=== PATIENT | male | born 1935 | race Caucasian/White ===

== ENCOUNTER 2016-09-27 12:41 | Observation (INO) | payer MEDICARE, OTHER ==
[~2016-09-27] VITALS: Ht 182.9 cm; Wt 91.3 kg
--- NOTE | ~2016-09-27 | ER ---
PATIENT'S NAME: RADHA COPELAND [facility] AGE: 81 Y [address] ROOM: [place] [address] [place]: [facility] [place] [facility] [place] ADMIT DATE: 09/27/2016 ER/Outpatient Report DISCHARGE DATE: FAMILY PHYSICIAN: Bakari Cardenas MD ATTENDING PHYSICIAN: Bakari Cardenas CHIEF COMPLAINT: Unresponsive, asymmetric. HISTORY OF PRESENT ILLNESS: The patient arrives by ambulance. Based on their report, the patient was not moving his left side and decreased moving on the right side. For that reason, he was called as a stroke alert prior to arrival. The patient is unable to provide further history, all history per EMS and family. The patient is emotional, intermittently crying, but nonverbal for the EMS crew. He does not follow commands in any extremities, but appears to move his right more than his left. The patient was seen by Dr. Cardenas earlier today in the clinic and given "a shot" for the infection in his legs, and he has underlying dementia. PAST MEDICAL HISTORY: Documented on the record and have been reviewed by me. SOCIAL HISTORY: Documented on the record and have been reviewed by me. MEDICATIONS: Documented on the record and have been reviewed by me. ALLERGIES: DOCUMENTED ON THE RECORD AND HAVE BEEN REVIEWED BY ME. REVIEW OF SYSTEMS: Could not be performed as the patient was nonverbal. PHYSICAL EXAMINATION: VITAL SIGNS: Blood pressure is 142/67, pulse is 74, respiratory rate is 16, temperature 98.9, and SpO2 is 93% on room air. Pain does not appear to be present. GENERAL: Age-appropriate male, no obvious pain or distress, lying on the exam table. NEURO: On exam, the patient has symmetric extraocular movements. He opens and closes eyes to command. He does not open his mouth or stick his tongue out to command. There is no motor tone in the upper extremities with request for pronator drift. He does not follow commands in either extremity for travel consultant, thumbs up or other motions. He will not move his legs. He will open and PATIENT'S NAME: RADHA COPELAND [facility] AGE: 81 Y [address] ROOM: [address] [address] LOCATION: [facility] [place] [place] ADMIT DATE: 09/27/2016 ER/Outpatient Report DISCHARGE DATE: FAMILY PHYSICIAN: Bakari Cardeans MD ATTENDING PHYSICIAN: Bakari Cardenas close his eyes to command. No clear asymmetric deficit at this time. The patient is nonverbal, I cannot assess his speech. HEENT: Normocephalic, atraumatic. Eyes are PERRL. Oropharynx is clear. NECK: Supple. Trachea is midline. CHEST: Heart has regular rate and rhythm with no murmurs. Lungs are clear to auscultation bilaterally with no rhonchi, wheezes, or rales. ABDOMEN: Soft, nontender, nondistended. No rebound or guarding. BACK: Normal to inspection and palpation. EXTREMITIES: Warm. There appears to be cellulitis versus heart failure versus DVT of the bilateral lower extremities, left greater than right. [place] edema on the left to the mid thigh, to the distal thigh on the right. SKIN: Otherwise, warm, dry, and intact grossly. LABORATORY DATA AND X-RAYS: DVT ultrasound, result is pending. Procalcitonin is below threshold. D-dimer is 2.49. Troponin I is below threshold. CRP is 1.95. ProBNP 6696. WBC is 8.3, hemoglobin 11.2, platelets of 271. INR is 1.0. Sodium is 141, potassium 4.0, chloride is 107, CO2 is 27, BUN is 31, creatinine 1.3, GFR 53, albumin and phosphorus 3.1 and 2.7 respectively. Lactate is 1.3. EKG reveals what appears to be AFib on the monitor, rate controlled approximately 65 beats per minute with likely prior infarct. No evidence of active ischemia at this time. Head CT, unremarkable; chest x-ray, unremarkable per my read. IMPRESSION: 1. Unresponsive episode with stroke-like symptoms initially. 2. Heart failure. 3. Dementia. EMERGENCY DEPARTMENT COURSE: The patient was seen and evaluated as above. His daughter arrived from [place]. He became verbal at that time, but did not improve significantly. She provides collateral history that he has been having some significant problems with dealing with grief since his fell ill about a month ago with heart failure. He intermittently will go catatonic, but usually responds shortly after just a minute or two. The daughter had not seen him like this before. He still was not following commands on my re-evaluation, but was talking spontaneously, interacting with the daughter. He does have heart failure based on labs and physical exam. The daughter expresses that he would be a DNR if his heart were to stop and they would not want any "extreme" measures to save his life. Based on my presentation, the lack of asymmetry and improving neuro status, though slowly, I think this is likely not a stroke. The patient was seen by PATIENT'S NAME: RADHA COPELAND [facility] AGE: 81 Y [address] ROOM: [place] [address] LOCATION: [facility] [place] ADMIT DATE: 09/27/2016 ER/Outpatient Report DISCHARGE DATE: FAMILY PHYSICIAN: Bakari Cardenas MD ATTENDING PHYSICIAN: Bakari Cardenas Dr.. We will bring him into the hospital under the care of Dr. Cardenas for further evaluation and treatment of this episode. All questions were answered, and the patient was admitted without further difficulty. MD LIZBETH KENNEDY/modl /[id number] d: 09/28/16921 t: 10/01/16 2213, OUTPATIENT REPORT
--- NOTE | ~2016-09-27 | DS ---
PATIENT'S NAME: RADHA COPELAND [facility] AGE: 81 Y [address] ROOM: [address] [place] [place], [place] [address] LOCATION: [facility] [place] ADMIT DATE: 09/27/2016 Discharge Summary DISCHARGE DATE: 10/05/2016 FAMILY PHYSICIAN: Bakari Cardenas MD ATTENDING PHYSICIAN: Bakari Cardenas FINAL DIAGNOSES: 1. Catatonic state, etiology undetermined. 2. Acute cellulitis of bilateral lower extremities. 3. Depression, acute, probably causing number 1? 4. Dementia, Alzheimer's. 5. Chronic obstructive pulmonary disease. 6. Combined-type congestive heart failure. 7. Benign prostatic hypertrophy. 8. Chronic gastroesophageal reflux disease. 9. Asthma, [id number]. 10. Hyperlipidemia. 11. Chronic low back pain secondary to lumbar spinal stenosis and compression fractures, old. HOSPITAL COURSE: This is an elderly 81-year-old male with known dementia, who was seen in my office just prior to admission with his son Harlan. He presented there because he was noted to have red legs. In my office, he had a significant area of erythema in both legs from the knees to the ankle consistent with cellulitis. He was given a shot of Rocephin, and started on oral antibiotics, only to have his son call me when he got back with his Dad father's living circumstances, and his Dad became nonverbal. The patient ended up being brought to the Emergency Room, and he was found there to be in a catatonic state. Vital signs were stable. So, he was admitted to the hospital. Please see history and physical. Please see the ER notes and labs and x-rays, etc. The patient was placed on IV antibiotics, Rocephin, and his cellulitis resolved during hospitalization. After about 36 hours, he decided to perk up and talk to his family. I did start him on Remeron here in the hospital. His other medications were continued, and it is fairly obvious to the physician and family that he cannot return to Assisted Living circumstance but really needs to be in a Residential Facility. So, care Management was consulted, and that has been arranged. In fact, he is being dismissed today on 10/05/2016 to a alf here in [place]. He is dismissed on the med list shown. He was on a diet as tolerated, and activity as tolerated. His mood has PATIENT'S NAME: RADHA COPELAND [facility] AGE: 81 Y [address] ROOM: [address] [address] LOC[place]: [facility] [place] ADMIT DATE: 09/27/2016 Discharge Summary DISCHARGE DATE: 10/05/2016 FAMILY PHYSICIAN: Bakari Cardenas MD ATTENDING PHYSICIAN: Bakari Cardenas improved. His cellulitis has resolved. He will see me in the office in two weeks. MD ROSS MANZANO/yolanda /[id number] d: 10/05/168 t: 10/20/16 1030, DISCHARGE SUMMARY
--- NOTE | ~2016-09-27 | ENPV ---
Vascular Lower Extremities DVT Study Procedure Demographics Patient Name RADHA COPELAND Date of Study 09/27/2016 Patient Number [id number] Gender Male Date of 1935 Age 81 Visit Number [id number] Height Accession Number [id number] Weight Room Number BSA BMI Referring Ronald Valerio MD Interpreting Paddy Callaway MD Physician Physician Physician Ordering Physician Rizwan Almeida MD Distribution Operations Manager Art Supervisor Court Yee T, [facility] Conclusions Summary TECHNIQUE: The veins of the lower extremities on the right and the left were evaluated from the groin to the ankle using degroot scale, compression, and augmentation. Venous hemodynamics were evaluated with color flow and spectral Doppler. FINDINGS: The deep veins of the legs bilaterally show normal color flow and compressibility without thrombosis. IMPRESSION: NEGATIVE BILATERAL LOWER EXTREMITY VENOUS DOPPLER. Procedure Type of Study: Veins:Lower Extremities DVT Study, Lower Extremity Right, Venous Duplex Lower Extremity Bilateral. Indications for Study:Swelling. Appropriate Use Criteria:6 Patient Status:STAT. Study Location:ER. Technical Quality:Adequate visualization. - Preliminary reported to:Dr. Astorga at 1335. Velocities are measured in cm/s ; Diameters are measured in cm Right Lower Extremities DVT Study Measurements Right 2D and Doppler Measurements + + + + +------+------+ + !Location !Visualized!Compressibility!Thrombosis!Signal!Reflux!Reflux ! ! ! ! ! ! ! !(sec) ! + + + + +------+------+ + !GSV Thigh !Yes !Yes !None !Phasic! ! ! + + + + +------+------+ + !Common !Yes !Yes !None !Phasic! ! ! !Femoral ! ! ! ! ! ! ! + + + + +------+------+ + !Prox !Yes !Yes !None !Phasic! ! ! !Femoral ! ! ! ! ! ! ! + + + + +------+------+ + !Mid Femoral!Yes !Yes !None !Phasic! ! ! + + + + +------+------+ + !Dist !Yes !Yes !None !Phasic! ! ! !Femoral ! ! ! ! ! ! ! + + + + +------+------+ + !Popliteal !Yes !Yes !None !Phasic! ! ! + + + + +------+------+ + !PTV !Yes !Yes !None !Phasic! ! ! + + + + +------+------+ + !Peroneal !Yes !Yes !None !Phasic! ! ! + + + + +------+------+ + Left Lower Extremities DVT Study Measurements Left 2D and Doppler Measurements + + + + +------+------+ + !Location !Visualized!Compressibility!Thrombosis!Signal!Reflux!Reflux ! ! ! ! ! ! ! !(sec) ! + + + + +------+------+ + !GSV Thigh !Yes !Yes !None !Phasic! ! ! + + + + +------+------+ + !Common !Yes !Yes !None !Phasic! ! ! !Femoral ! ! ! ! ! ! ! + + + + +------+------+ + !Prox !Yes !Yes !None !Phasic! ! ! !Femoral ! ! ! ! ! ! ! + + + + +------+------+ + !Mid Femoral!Yes !Yes !None !Phasic! ! ! + + + + +------+------+ + !Dist !Yes !Yes !None !Phasic! ! ! !Femoral ! ! ! ! ! ! ! + + + + +------+------+ + !Popliteal !Yes !Yes !None !Phasic! ! ! + + + + +------+------+ + !PTV !Yes !Yes !None !Phasic! ! ! + + + + +------+------+ + !Peroneal !Yes !Yes !None !Phasic! ! ! + + + + +------+------+ + Signature dtt: Bill Thomason: 09/27/16 1310 Physician Self Edit
--- NOTE | ~2016-09-27 | HP ---
PATIENT'S NAME: RADHA COPELAND [facility] AGE: 81 Y [address] ROOM: [address] [address] LOCATION: [facility] [place] ADMIT DATE: 09/27/2016 History & Physical DISCHARGE DATE: FAMILY PHYSICIAN: Bakari Cardenas MD ATTENDING PHYSICIAN: Bakari Cardenas DATE OF SERVICE: CHIEF COMPLAINT: Depression. The patient is an elderly white male whom frankly I just saw in the office prior to coming from the emergency room, who presented with his son, Jayden Copeland. At that time, he had been [facility]. They noted his legs were red, swollen, and in my office, the patient had bilateral lower leg cellulitis and was given 1 g Rocephin and sent out the door. At that time, I did review his medicines, there have been no other changes. He has been depressed in the last month since his . He did not [facility] this time at [facility]. Long story short then, his son noticed when he got back to living circumstance, he became catatonic by his description. So, I told the son, Jayden to bring the patient to the emergency room, where he was appropriately evaluated by Dr. Astorga, the ER physician. Dr. Astorga called me and said he did feel the patient should go back to his current living environment catatonic. So, the patient was taken out of PCU and will treat him with IV antibiotic, Rocephin and add his Remeron as an antidepressant which I planned on doing. MD ROSS MANZANO/modl /[id number] D: 328 T: 744 HISTORY & PHYSICAL
--- NOTE | ~2016-09-27 | HP ---
PATIENT'S NAME: RADHA COPELAND [facility] AGE: 81 Y [address] ROOM: [place] [address] LOCATION: [facility] [place] ADMIT DATE: 09/27/2016 History & Physical DISCHARGE DATE: FAMILY PHYSICIAN: Lucius Cardenas MD ATTENDING PHYSICIAN: Lucius Cardenas DATE OF SERVICE: 10/03/2016 Radha Copeland is seen today. HISTORY OF PRESENT ILLNESS: He has been on the hospital for several days. Basically, we were awaiting for placement. I did talk to the physician review [facility] and frankly I do not find any criteria that he meets necessarily inpatient status. Hospital service delivery consultant physician was informed about that. OBJECTIVE: VITAL SIGNS: Pulse is irregular in 80, O2 sats normal on room air. GENERAL: He is alert. His mood has improved. He is not suicidal. HEENT: Benign. NECK: Unremarkable. LUNGS: Clear anteriorly. Few scattered rhonchi. Clear with cough. HEART: Shows a regular rhythm at 80. ABDOMEN: Benign. EXTREMITIES: Show trace edema. NEUROLOGIC: Grossly intact without lateralizing signs. ASSESSMENT: 1. Severe depression and catatonic state, improved recently, added Remeron. 2. Chronic obstructive pulmonary disease and asthma. Stable. O2 sats normal. 3. Hypertension, essential. 4. Known carotid disease. 5. Combined type congestive heart failure, chronic. 6. Atrial fibrillation. PLAN: Continue to work towards placement. LUCIUS CARDENAS MD PATIENT'S NAME: RADHA COPELAND [facility] AGE: 81 Y [address] ROOM: [place] [id number] LOCATION: [facility] [place] ADMIT DATE: 09/27/2016 History & Physical DISCHARGE DATE: FAMILY PHYSICIAN: Lucius Cardenas MD ATTENDING PHYSICIAN: Lucius Cardenas DIRECTOR OF MARKETING AND PROMOTIONS/modl /[id number] D: 78 HISTORY & PHYSICAL
--- NOTE | ~2016-09-27 | HP ---
PATIENT'S NAME: RADHA COPELAND [facility] AGE: 81 Y [address] ROOM: [place] [address] LOCATION: [facility] [place] ADMIT DATE: 09/27/2016 History & Physical DISCHARGE DATE: FAMILY PHYSICIAN: Bakari Cardenas MD ATTENDING PHYSICIAN: Bakari Cardenas DATE OF SERVICE: CONTINUATION: The patient therefore was admitted to the floor, we will give him IV antibiotics, reassess in the morning. MEDICINES: Reviewed. ALLERGIES: NOTED. SOCIAL HISTORY: Noncontributory. FAMILY HISTORY: As described above. REVIEW OF SYSTEMS: Positive for COPD, diabetes mellitus type 2, dementia, Alzheimer's type, coronary artery disease, and depression. Otherwise, see nurse's database. PHYSICAL EXAMINATION: Elderly male who does not want talk now, although when I came in the room, he said ashley Caceres. HEENT: Shows pupils react to light. Funduscopic exam not done. TMs not visualized. Posterior pharynx is clear. NECK: Unremarkable. I did not listen for a bruit. Thyroid not enlarged. LUNGS: Show decreased breath sounds throughout, but no wheezing. HEART: Shows no murmur, gallop, or rub. Irregular rhythm noted. ABDOMEN: Benign without point tenderness or mass. PELVIC AND RECTAL: Not done. NEUROLOGIC: Shows no focal neurologic deficit from his prior exam. SKIN: Shows fiery red cellulitis in both lower legs from the knee down bilaterally with some open sores that appeared to be ruptured blisters on his left leg, a couple of them 3 cm in size. Nothing to suggest reji MRSA nor does have a history thereof. ASSESSMENT: PATIENT'S NAME: RADHA COPELAND [facility] AGE: 81 Y [address] ROOM: [place] [id number] LOCATION: [facility] [place] ADMIT DATE: 09/27/2016 History & Physical DISCHARGE DATE: FAMILY PHYSICIAN: Bakari Cardenas MD ATTENDING PHYSICIAN: Bakari Cardenas 1. Catatonic behavior and depression. 2. Cellulitis of lower extremity bilateral. 3. Chronic obstructive pulmonary disease. 4. History of atrial fibrillation. 5. Coronary artery disease. 6. Dementia, Alzheimer's type. 7. Elevated BNP consistent with longstanding chronic mixed type congestive heart failure. PLAN: As above. MD ROSS MANZANO/yolanda /[id number] D: [id number] T: [id number] HISTORY & PHYSICAL
[~2016-09-27 12:41] MED LIST changes: -AMITIZA8 MCG PO; -ANUSOL-HC CREAM30 GM R; -CERAVE TOP; -CERAVE453 GM TOP; -CHLORASEPTIC SP1 BOT PO; -DOXYCYCLINE100 MG PO; -DULCOLAX10 MG R; -DURAGESIC 100100 MCG TRANS; -ENDOCET 10-3251 EACH PO; -KEFLEX500 MG PO; -MILK OF MA400 MG/5 M PO; -MUCINEX600 MG PO; -MYCOLOG CREAM 330 GM TOP; -PERCOCET 5-3251 EACH PO; -PERIDEX15 ML PO; -PRAMOSONE TOP; -PRESERVISION A1 EACH PO; -REMERON15 MG PO; -RITALIN 10MG10 MG PO; -SEROQUEL25 MG PO; -THERAGRAN-M1 TAB PO; -TOPROL XL25 MG PO; -ULTRAM50 MG PO; -VITAMIN D-40400 UNIT PO
[2016-09-27 13:08] LABS: BASOPHIL % 0.5 %; EOSINOPHIL # 0.1 K/uL (0.0-0.5); HEMATOCRIT 34.4 % (33.0-50.0); HEMOGLOBIN 11.2 g/dL (11.0-16.0); IMMATURE GRANULOCYTE % 0.2 %; LYMPHOCYTE # 2.2 K/uL (0.8-4.0); LYMPHOCYTE % 26.8 %; MCH 32.7 pg (27.0-34.0); MCHC 32.6 gm/dL (32.0-36.5); MCV 100.6 fl (83.0-98.0); MONOCYTE # 0.7 K/uL (0.0-1.0); MONOCYTE % 8.9 %; MPV 10.1 fl (9.4-12.4); NEUTROPHIL # (ANC) 5.2 K/uL (1.4-9.0); NEUTROPHIL % 62.6 %; NRBC % 0 /100WBC (0-0.00); PLATELET COUNT 271 K/uL (150-450); RBC 3.42 M/uL (3.50-5.50); RDW-CV 14.5 % (11.9-14.6); WBC 8.3 K/uL (4.0-11.0)
[2016-09-27 13:22] LABS: ALBUMIN 3.1 gm/dL (3.5-5.0); CALCIUM 8.4 mg/dL (8.5-10.5); CREATININE 1.3 mg/dL (0.6-1.3); INR - (THERAPEUTIC) 1.08 (0.92-1.07); PHOSPHORUS 2.7 mg/dL (2.5-4.9); PROTIME 11.3 SECONDS (9.8-11.4); PTT 24 SECONDS (25-32)
--- NOTE | 2016-09-27 17:22 | NUR ---
Pt is 81 y/o male admit for heart failure/cellulitis legs for . Pt oriented to person. [place]. Resides at [facility]. Came through ED. Hx renal ca-left nephrectomy,prostate ca,TIA,alzheimers,CABG,colon resection,afib,RI,DVT,COPD,arthritis,diverticulitis,gerd,pneumonia,anxiety, depression. Son states he found pt unresponsive in his bathroom in his wheelchair with the heat turned up to about 86 degrees. He states pt was drooling and couldn't speak very well. PT had been to the doctor this am with his son to have his cellulitis on his legs evaluated and was slightly confused then. He has frequent falls and uses an electric wheelchair to get around. Bilat lower legs reddened.
[2016-09-27] MEDS ORDERED: AMITIZA8 MCG PO (19:31)
[2016-09-27] MEDS ORDERED: CERAVE453 GM TOP (19:34)
[2016-09-27] MEDS ORDERED: VITAMIN D-40400 UNIT PO (19:35)
[2016-09-27] MEDS ORDERED: MILK OF MA400 MG/5 M PO (19:37)
--- NOTE | 2016-09-28 05:27 | NUR ---
Significant Event: PATIENT IS ALERT WHEN SPOKEN TO WILL FOLLOW SIMPLE COMMANDS. AMBULATES WITH GB 2 PERSON ASSIST TO STAND BY BEDSIDE AND USE URINAL. HAS ROCEPHEN Q 12 HRS IV FOR CELLULITIS IN LOWER EXTREMITIES. HAD A STROKE ALERT YESTERDAY AM CT WAS NEGATIVE. CHRONIC AFIB. BEDREST WITH BATHROOM PRIVILAGES. IV R AC SL. VSS ON RA. INCONTENANT URINE X2 THIS SHIFT USED URINAL X2. HX OF SMALL GI BLEED. PLAN TO RETURN TO [facility] THIS AM. Follow up:
--- NOTE | 2016-09-28 10:30 | NUR ---
D: Family brought in patient's bilateral hearing aides, santiago cell plone decorating machine operator
--- NOTE | 2016-09-28 16:16 | NUR ---
Significant Event: Patient sleepy this am. More alert this afternoon. Disoriented to time. Duragesic patch to lt chest. Lower legs edematous, reddened and areas of open blisters. Up in chair with 2 assist. PT and OT consulted. Ate breakfast, refused lunch. Follow up:
--- NOTE | 2016-09-29 05:07 | NUR ---
Significant Event: Pt up in chair beginning of shift. 2 assist back to bed. INcont of urine x 2. No c/o pain. [place]. Bed alarm on for safety with 1 attempt to get out of bed when in need of urinal. PT/OP working with. New IV started to right posterior arm right above AC. Left leg has 2 open blisters and Right has one, no drainage noted this shift. Follow up:
--- NOTE | 2016-09-29 17:45 | NUR ---
Oriented to self. Uses wheelchair in home. Tolerating regular diet well. IV Abx intermittently. Repo frequently. VSS, afebrile, on RA. Denies N/V/D. C/O back discomfort this a.m. from mattress, refused meds for it. Takes pills in applesauce. Looking for placement.
--- NOTE | 2016-09-30 04:59 | NUR ---
Patient alert to self and place. Room air. No IVF. IV to R) upper arm - no blood return. IV antibiotics. 1-2 assist with walker and gaitbelt. Stands up and uses urinal - wears breif for incontinence - none this shift. Bed alarm on. [place]. No c/o pain. Patient cooperative with cares. Left leg has 2 open blisters and right has one. No drainage this shift. WOC consult.
--- NOTE | 2016-09-30 11:37 | NUR ---
RECEIVED CALL FROM PATIENT'S DAUGHTER MYNOR WHO IS ALSO POA( [phone]). SHE FEELS THAT HER DAD NEEDS TO GO TO SNF INSTEAD OF BACK TO [facility]. HER MOM IS AT [facility] AND MYNOR HAS SPOKE TO [facility] BUT THEY DO NOT HAVE ANY MALE BEDS AT THIS TIME. MYNOR WOULD LIKE FOR ME TO CHECK AT [facility]. SHE REPORTS THAT SHE HAS SPOKEN TO SOMEONE THERE ANDTHEY DO HAVE A MALE BE. I ATTEMPTED TO MAKE REFERRAL TO EYAD AT [facility] BUT HAD TO LEAVE A MESSAGE FOR HER TO CALL ME. I SPOKE TO REBECCA EARLY THIS AM AT [facility] AND SHE REPORTS THAT RADHA WILL NEED TO GO TO SNF FOR SHORT STAY. HIS NEEDS EXCEED WHAT THEY CAN PROVIDE.
--- NOTE | 2016-09-30 13:09 | NUR ---
RECEIVED CALL FROM JUAN AT [facility] SHE INFORMS ME THAT THEY WILL NOT BE ABLE TO ACCEPT PATIENT'S THIS WEEK. I SPOKE TO PATIENT'S DAUGHTER MYNOR AND UPDATED HER SHE IS NOT HAPPY ABOUT THIS BECAUSE "SOMEONE AT [facility] TO ME THAT THEY HAD BEDS" MYNOR IS GOING TO TALK TO HER FAMILY AND GET BACK TO ME REGARDING OTHER SNF THAT SHE WOULD LIKE FOR ME TO CHECK INTO.
--- NOTE | 2016-09-30 16:15 | NUR ---
Significant Event:Is A/O.Has SL in Rt.anticub.Has some sores on lower legs that are starting to heal.Has been up with 1 & walker,does fairly well.Is a DNR.Looking for placement.Has had no c/o pain.Pleasant. Follow up:
--- NOTE | 2016-10-01 05:10 | NUR ---
Significant Event: Pt A&Ox2. Vital signs stable, remains on RA. Is [place] and has PRICE [place]ia ears. Has hx of CHF, daily wt. Has chronic pain issues, fent patch on upper Lt back. Has vale tylenol 1g. Gave 2 percocet last night instead. Pt states pain is within his normal limits. Bed alarm/chair alarm on at all times. PIV RAC, SL. Up with x1 assist with gaitbelt and walker. Will walk to bathroom. Has edema in BLE. Sores scattered throughout lower extremities, WOC consulted. No recent ECHO has been performed on pt. Follow up: Continue plan of care. Looking for placement.
--- NOTE | 2016-10-01 09:00 | NUR ---
RECEIVED CALL FROM PATIENT'S DAUGHTER MYNOR, SHE REPORTS THAT SHE MEET WITH [facility] AT [facility] YESTERDAY AFTERNOON AND THEY WILL ACCEPT RADHA BUT WILL NOT BE ABLE TO ACCEPT HIM TILL SAT THAT IS THE SOONEST THEY WILL HAVE A BED. REMINDED MYNOR THAT PATIENT IS OBSERVATION STATUS, AND MYNOR INFORMS ME THAT SHE IS AWARE OF THIS AND THAT SHE WILL NOT LET NARESH GO ANY PLACE EXCEPT [facility] THAT IS WHERE HER MOM IS AND "SHE IS DYING".SHE ALSO INFORMS ME THAT [facility] IS OUT OF THE OFFICE TODAY FOR A CONFERENCE BUT WILL BE BACK TOMORROW AND THAT SHE WOULD LIKE FOR ME TO FAX INFO TO [facility] TODAY. I NOTIFIED [facility] AND SPOKE TO KARLENE AND SHE REPORTS THAT [facility] WILL BE BACK TOMORROW AND THAT SHE WOULD LIKE FOR ME TO FAX INFO ON RADHA AND [facility] WILL LOOK AT IT TOMORROW.
--- NOTE | 2016-10-01 09:15 | NUR ---
SPOKE TO DR. CUNNINGHAM AND UPDATED HIM THAT RADHA HAS BEEN ACCEPTED TO [facility] BUT THEY WILL NOT HAVE A BED UNTIL SAT.
--- NOTE | 2016-10-01 14:32 | NUR ---
Patient is alert but disoriented to time. He is a 1 assist with walker and gait belt. Regular diet. Very [place] even with his hearing aides. Legs bilaterally are dry and slightly red with a couple of open areas. Edema is 2+ to lower extremities. Will go to [facility] on friday.
--- NOTE | 2016-10-02 05:08 | NUR ---
Significant Event: Pt A&Ox2. Vital signs stable, remains on RA. Is [place] even with PRICE in. Ambulates with x1 assist w/gaitbelt and walker. PIV in RAC, SL. Hasn't had a BM since 09/28. Has MoM on AUG, please give this AM. Last night pt preferred taking 2 Percocet over Tylenol. No recent ECHO on file. Edema has gotten better, but still 2+. Follow up: Discharge to [facility] on Friday. Continue with plan of care.
--- NOTE | 2016-10-02 12:50 | NUR ---
A - PT SCREENED D/T LOS. 2+ EDEMA BLE. HT: 72" WT: 210# BMI: 28.5. LABS: GLU 105, BUN/CR 31/1.3, ALB 3.1, CRP 1.95. MEDS: LASIX, OMNICEF, ZOLOFT, PROTONIX, EXELON, REMERON. DIET: REG. INTAKE: 50-100%. NEEDS: 7779-1284 KCAL (20-25 KCAL/KG), 76-95 G PRO (0.8-1 G/KG), 2375 ML FLUID (25 ML/KG). D - NO NUTRITION RELATED DIAGNOSIS IDENTIFIED AT THIS TIME. I - GOAL FOR INTAKE TO REMAIN 50-100% FOR DURATION OF STAY. M/E - WILL ASSIST NEEDED.
--- NOTE | 2016-10-02 16:26 | NUR ---
Forgetful but cooperative. Up w/SBA, GB, and walker with steady gait. Sometimes incontinent w/brief on. Tolerating regular diet well. VSS, afebrile, on RA. Denies N/V/D and pain. IV s/l'd to RFA. Showered to day.
--- NOTE | 2016-10-03 03:52 | NUR ---
Significant Event: AAOX2, BUT FORGETFUL. REGULAR DIET. PIV SUPERIOR TO RAC SL. VSS ON RA. 1PA WITH FWW AND GB. DENIED PAIN THROUGHOUT SHIFT. ABLE TO MAKE NEEDS KNOWN. COOPERATIVE WIH CARES. Follow up:
--- NOTE | 2016-10-03 11:56 | NUR ---
ATTEMPTED TO SPEAK TO VERA AT [facility] REGARDING PATIENT TO SEE WHEN THEY WANT RADHA TO COME ON FRIDAY. I HAD TO LEAVE A MESSAGE FOR HER TO CONTACT ME. WILL CONT TO FOLLOW NEEDED.
--- NOTE | 2016-10-03 16:20 | NUR ---
SPOKE TO VERA AT [facility] SHE REPORTS THAT THEY ARE PLANNING ON RADHA COMING ON FRIDAY, SHE IS NOT SURE WHAT TIME ON FRIDAY THAT THEY WILL HAVE PATIENT COME THE ROOM HE IS GOING TO BE PLACED IN HAS A FEMALE AND SHE I SCHEDULED TO BE DISCHARGED BUT SHE IS NOT SURE WHAT TIME PATIENT WILL BE LEAVING AND SHE HOPES TO HAVE A BETTER IDEA TOMORROW. VERA IS HOPING TO HAVE A BETTER IDEA TOMORROW OF WHAT TIME THE PATIENT IS LEAVING ON FRI. VERA WOULD LIKE FOR ME TO CONTACT HER TOMORROW.
--- NOTE | 2016-10-03 16:21 | NUR ---
Significant Event:Is A/O but forgetful.SL Lt.arm.Voiding ok.Had mod stool.Amb with walker & 1 assist.Upset this afternoon as he thought he was going home today.To [facility] maybe Sat.No c/o pain. Follow up:
--- NOTE | 2016-10-04 03:16 | NUR ---
Significant Event: VSS on room air, afebrile. Got up to void and was weak with his right kneee giving at times. Patient was pretty sleepy throughout the shift, slept most of the night. Alert and oriented with a little bit hard of hearing.
--- NOTE | 2016-10-04 11:30 | NUR ---
RECEIVED CALL FROM VERA AT [facility] SHE REPORTS THAT PATIENT'S DAUGHER WILL BE HERE AT 1400 TOMORROW TO GET RADHA, I NTOIFIED DR. CUNNINGHAM AND HAD TO LEAVE A MESSAGE ON HIS VOICE MAIL. I ALSO NOTIFIED HIS OFFICE NURSE AND UPDATED HER SHE WILL INFORM HIM. PACKET STARTED AND ORDERS FAXED TO VERA DR. CUNNINGHAM HAS COMPLETED THEM.
--- NOTE | 2016-10-04 16:28 | NUR ---
Significant Event:Is A/O but forgetful.Has been up & amb with a walker & 1 assist.Has had no c/o pain.Glad to be leaving tomorrow.Has been incont of urine or at times will make it to the BR.Had 2 mod formed brown stools with some blood noted.He states he does have hemorrhoids. Follow up:
--- NOTE | 2016-10-05 05:05 | NUR ---
Significant Event: PATIENT IS ALERT BUT FORGETFUL AND HARD OF HEARING. AMBULATES WITH ONE ASSIST GB WALKER. PAITENT IS INCONTENTANT OF URINE AND BM. IV TO R UPPER ARM SL FLUSHES WELL NO BLOOD RETURN. NO COMPLAINTS OF PAIN OR DISCOMFORT. PLANS TO GO TO [facility] TODAY. Follow up:
--- NOTE | 2016-10-05 12:06 | NUR ---
Significant Event: Follow up: Patient was admitted for heart failure and weakness. UP to ambulate with 1 standby assist , gait belt and walker. Edema to lower legs. Able to take medications whole in applesauce. Eats and drinks well. Uses incontinent products but also is continent at times. 2 moderate formed stools yesterday. Hemmhroids. Alert but forgerful. Pleasent and cooperative, offers no complaints. Patient is anxious to join his at nursing fcility. No skin issues.
[2017-01-08] MEDS ORDERED: ULTRAM50 MG PO (10:22)
[2017-01-08] MEDS ORDERED: SEROQUEL25 MG PO (10:22)
[2017-01-08] MEDS ORDERED: ANUSOL-HC CREAM30 GM R (10:22)
[2017-01-08] MEDS ORDERED: PERIDEX15 ML PO (10:23)
[2017-01-08] MEDS ORDERED: KEFLEX500 MG PO (10:32)
== END 2016-10-05 14:20 ==
LOC: GMED 12:41 → GMSU 14:40
PROVIDERS: Emergency Medicine; ADMIT Family Medicine
DX: F32.89 Other specified depressive episodes (principal); G30.9 Alzheimer's disease, unspecified; F02.80 Dementia in other diseases classified elsewhere, unspecified severity, without behavioral disturbance, psychotic disturbance, mood disturbance, and anxiety; J44.9 Chronic obstructive pulmonary disease, unspecified; I50.40 Unspecified combined systolic (congestive) and diastolic (congestive) heart failure; I25.10 Atherosclerotic heart disease of native coronary artery without angina pectoris; I48.91 Unspecified atrial fibrillation; J45.909 Unspecified asthma, uncomplicated; N40.0 Benign prostatic hyperplasia without lower urinary tract symptoms; M48.06 Spinal stenosis, lumbar region; K21.9 Gastro-esophageal reflux disease without esophagitis; E78.5 Hyperlipidemia, unspecified; M79.89 Other specified soft tissue disorders
CPT/HCPCS: G0237; G0378; G8978; G8979; G8980; G8981; G8982; G8983; J0696; J1650; J7050

== ENCOUNTER → 2016-09-27 | Outpatient (CLI) | payer MEDICARE, OTHER ==
[~2016-09-27] MED LIST: ADVAIR 250-501 EACH INH; ALBUTEROL2.5 MG/31 INH; AMITIZA8 MCG PO; ANUSOL-HC CREAM30 GM R; ASPIR 8181 MG PO; CEFTIN500 MG PO; CERAVE TOP; CERAVE453 GM TOP; CHLORASEPTIC SP1 BOT PO; COUMADIN ** 9/62 MG PO; COUMADIN **IA1 MG PO; CRESTOR20 MG PO; CRESTOR40 MG PO; DOXYCYCLINE100 MG PO; DULCOLAX10 MG R; DURAGESIC 100100 MCG TRANS; ENDOCET 10-3251 EACH PO; EXELON1.5 MG PO; FLOMAX0.4 MG PO; KEFLEX500 MG PO; LASIX40 MG PO; LOMOTIL 2.5-0.1 EACH PO; LOMOTIL1 TAB PO; LOPRESSOR25 MG PO; MILK OF MA400 MG/5 M PO; MUCINEX600 MG PO; MYCOLOG CREAM 330 GM TOP; NORCO 10-325 T1 EACH PO; PAMELOR10 MG PO; PERCOCET 5-3251 EACH PO; PERIDEX15 ML PO; PRAMOSONE TOP; PRESERVISION A1 EACH PO; PRILOSEC20 MG PO; PROMETHAZINE-C240 ML PO; REMERON15 MG PO; RITALIN 10MG10 MG PO; ROXICODONE 5MG (5 MG PO; SEROQUEL25 MG PO; SPIRIVA18 MCG INH; THERAGRAN-M1 TAB PO; TOPROL XL25 MG PO; TRICOR145 MG PO; TYLENOL325 MG PO; ULTRAM50 MG PO; VITAMIN D-40400 UNIT PO; VOLTAREN 1% GE100 GM TOP; ZOLOFT100 MG PO
== END | disposition disaster alternative care site (69) ==
LOC: GAMB 12:23
DX: I63.9 Cerebral infarction, unspecified (principal); F03.90 Unspecified dementia, unspecified severity, without behavioral disturbance, psychotic disturbance, mood disturbance, and anxiety; I10 Essential (primary) hypertension; N18.3 Chronic kidney disease, stage 3 (moderate); R53.1 Weakness; Z79.82 Long term (current) use of aspirin; Z79.899 Other long term (current) drug therapy; Z88.5 Allergy status to narcotic agent
CPT/HCPCS: A0425; A0429

== ENCOUNTER 2016-10-16 20:01 | Inpatient (IN) | payer MEDICARE, OTHER ==
[~2016-10-16] VITALS: Ht 180.3 cm; Wt 91.1 kg
--- NOTE | ~2016-10-16 | DS ---
PATIENT'S NAME: RADHA COPELAND [facility] AGE: 81 Y [address] ROOM: [address] [address] LOCATION: GPCU ADMIT DATE: 10/16/2016 Discharge Summary DISCHARGE DATE: 10/30/2016 FAMILY PHYSICIAN: Bakari Cardenas MD ATTENDING PHYSICIAN: Bartolome Gallo ATTENDING PHYSICIAN: Ashwin Espana MD. FINAL DIAGNOSES: 1. Left lower extremity cellulitis, resolved. 2. Pseudomonas urinary tract infection. 3. Adult failure to thrive. 4. Acute encephalopathy, resolved. 5. Sepsis. 6. Chronic pain. 7. Atrial fibrillation, rate controlled. 8. Hematuria, resolved. 9. History of prostate cancer. CONSULTATIONS: 1. Urology, Dr. Servin. 2. Cardiology, Dr. Lim. 3. Palliative Care. PROCEDURE: Cystoscopy by Dr. Servin. REASON FOR ADMISSION: This is an 81-year-old male, who has presented with repeat admissions in the past few weeks. During the past admission, the patient had catatonia. He then continued to do well and was discharged to a custodial in stable condition; however, the patient presented again with altered mental status. He was initially thought to have left lower extremity cellulitis and altered mental status. The patient was evaluated and then further admitted to [facility]. Please see Dr. Gallo's admission H and P for further details. DIAGNOSTIC STUDIES: A transthoracic echocardiogram was done and showed ejection fraction of 55% to 60% with mild concentric left ventricular hypertrophy and mildly reduced right ventricular systolic function, mild biatrial enlargement, trivial pericardial effusion was noted. ABG was done on admission showed a pH of 7.53, pCO2 of 31, pO2 of 69, bicarb 25.9. Serial Accu-Cheks were done and were in the range of 104 to 201. Ammonia level 24 on admission. Serial cardiac enzymes were done. Troponin I less than 0.04 on admission, it peaked to 0.055, and subsequently was trending down and was less than 0.04. CPK was normal. ProBNP 5973 on admission and increased to 7688 subsequently. Serial CBCs were done. White count was essentially normal PATIENT'S NAME: RADHA COPELAND [facility] AGE: 81 Y [address] ROOM: [facility] [place] [place], [place] [address] LOCATION: GPCU ADMIT DATE: 10/16/2016 Discharge Summary DISCHARGE DATE: 10/30/2016 FAMILY PHYSICIAN: Bakari Cardenas MD ATTENDING PHYSICIAN: Bartolome Gallo throughout the course of this hospitalization. Hemoglobin was 12.4 on admission and 10.0 at the time of discharge. The patient did not receive any blood transfusion during this admission. Platelet counts were within normal range. Serial BMPs were done. Electrolytes were within normal range. The patient did have hypernatremia with sodium 147 briefly, that corrected, sodium at the time of discharge stable at 142. Potassium was within normal range. The patient's creatinine was 2.0 on admission, and at the time of discharge, it was 1.0. The patient had acute kidney injury on admission. Mag level 2.0. ESR 20 on admission. PT, INR, and PTT were normal. The patient was briefly placed on a heparin drip that was monitored with PTT levels. The patient had a UA done on admission that was negative for bacteria. The patient developed hematuria. Repeat UA showed 4+ turbidity and red urine with blood and rbc's. Urine creatinine random was 49.0. CK-MB was normal. CRP 2.9 on admission. Free T4 1.0, TSH 2.34. Procalcitonin level less than 0.05. D-dimer elevated at 6.57 on admission. Chest x-ray was done on admission for altered mental status and showed scarring or atelectasis at the right mid lung. Stable cardiomegaly was noted. The patient had a head CT for altered mental status. Head CT with no contrast was found to be stable with no evidence of acute intracranial abnormality. A benign arachnoid cyst in the middle cranial fossa on the right was noted, that was found to be stable. Stable advanced chronic white matter changes were noted as well. The patient underwent CT abdomen and pelvis with contrast for abdominal pain, that showed no acute findings. Postop changes of right nephrectomy, sigmoidectomy, and radiation seeds in the prostate were noted. Severe L2 compression fracture with mild worsening in height loss compared to previous CT was noted. Mild prominence of stool in the colon with scattered diverticulosis was noted. Chest x-ray was later repeated to rule out volume overload and showed stable cardiomegaly without evidence of CHF. D-dimer was found to be elevated, and the patient had acute kidney injury at that point of time. A CT chest could not be accomplished because of acute kidney injury. The patient underwent a V/Q scan that showed low probability exam for pulmonary embolic disease. Ultrasound upper quadrant was done for abdominal pain and showed changes of right nephrectomy with no evidence of cholelithiasis or acute cholecystitis. Repeat chest x-ray was done for shortness of breath, and it showed past cardiac surgery. Cardiac enlargement with mild vascular congestion was noted with prominence of infrahilar lung markings likely reflecting infrahilar edema, infiltrate and atelectasis could also contribute to the observed appearance. Blood cultures were done on admission and were negative. Urine culture showed Pseudomonas aeruginosa that was found to be pansensitive. Stool was positive for occult blood. HOSPITAL COURSE: This is an 81-year-old male, who had initially presented PATIENT'S NAME: RADHA COPELAND [facility] AGE: 81 Y [address] ROOM: [place] [address] LOCATION: GPCU ADMIT DATE: 10/16/2016 Discharge Summary DISCHARGE DATE: 10/30/2016 FAMILY PHYSICIAN: Bakari Cardenas MD ATTENDING PHYSICIAN: Bartolome Gallo during the past admission with catatonia that had resolved. The patient was discharged to custodial in stable condition. However, the patient presented again with altered mental status. There was initially concern about left lower extremity cellulitis. Upon evaluation, sepsis protocol was initiated. Blood cultures remained negative. The patient was thought to have left lower extremity cellulitis. He was initially placed on broad-spectrum antibiotics that included Zosyn and Zyvox. This was continued. The patient was also found to have shortness of breath, and there was concern for PE. However, CT chest PE protocol could not be obtained because of CHIDI. The patient was treated with heparin drip per PE protocol. The next morning, v/Q scan was done and showed low probability exam. The patient's heparin drip was then discontinued. The patient did develop Hemoccult-positive stools but did not have any occult bleeding. Hemoglobin remained stable. 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 The patient then developed hematuria. Urology was consulted. The patient underwent a cystoscopy. It was noted that the patient had a trauma because of the Cabrera to his prostatic urethra. Cabrera catheter was continued until the day of discharge. On the day of discharge, the patient's hematuria had resolved. Cabrera catheter was removed, and the patient did have a good void prior to discharge. The patient was found to have Pseudomonas UTI, and he was continued on Zosyn. He finished a course of Zosyn subsequently. Antibiotics were then discontinued. The patient did have NSTEMI. There was also concern for atrial fibrillation with a slow ventricular rate and concern for sick sinus syndrome. Cardiology, Dr. Lim was consulted. Dr. Lim recommended further evaluation, however, since the patient had altered mental status and was not doing well, family refused any further evaluation and aggressive measures. Prior to discharge, I did discuss with the patient about cardiology evaluation, but he refused any further cardiac evaluation and any further aggressive procedures. He did understand his altered mental status had resolved by then. He was alert and oriented x3, and did understand his condition. The patient had altered mental status on admission. This was thought to be secondary to combination of sepsis and polypharmacy. The patient's pain medications were discontinued on admission after 3 to 4 days. Once the patient started interacting, his altered mental status resolved. The patient was then placed on home medications. The patient was given physical therapy during this admission for physical deconditioning. By the time of discharge, the patient was ambulating with the help of assistance. His hematuria had resolved. The patient was tolerating p.o. His altered mental status PATIENT'S NAME: RADHA COPELAND [facility] AGE: 81 Y [address] ROOM: [id number] [place] [id number] LOCATION: GPCU ADMIT DATE: 10/16/2016 Discharge Summary DISCHARGE DATE: 10/30/2016 FAMILY PHYSICIAN: Bakari Cardenas MD ATTENDING PHYSICIAN: Bartolome Gallo resolved. He was not in any pain. The patient's acute kidney injury also resolved. He continued to do well and was discharged and asked to follow up with his primary care physician. DISCHARGE INSTRUCTIONS: The patient discharged to [facility] in stable condition. The patient is to follow up with Dr. Bakari Cardenas in 3 to 4 days' time. Palliative Care will follow up with the patient at [place]. The patient is a DNR/DNI. He is on a clear liquid diet. Calorie count is not needed. He is not n.p.o. OT and PT to evaluate and treat as indicated. O2 p.r.n. to keep sats more than 90%. CBC and BMP at followup with PCP recommended. The patient does not have a urinary catheter. He may not have alcoholic beverages. Rehab potential is fair. Discharge potential is fair. The patient and family are aware of condition and prognosis and were updated by me. May crush appropriate medications. DISCHARGE MEDICATIONS: 1. Lasix 40 mg p.o. 5 days per week on Friday, Friday, Friday, , Friday for CHF. 2. Tricor 145 mg p.o. q.h.s. for dyslipidemia. 3. Ritalin 10 mg p.o. b.i.d. 4. Prilosec 20 mg p.o. daily for GERD. 5. Rivastigmine 6 mg p.o. b.i.d. for dementia. 6. Crestor 40 mg p.o. q.h.s. for dyslipidemia. 7. Flomax 0.4 mg p.o. q.h.s. for BPH. 8. Spiriva 18 mcg inhalation for dyspnea. 9. Advair 250/50 Diskus 1 puff inhalation twice daily for COPD. 10. Tylenol 650 mg p.o. q.4 hours p.r.n. pain. 11. Duragesic patch was discontinued during this admission. 12. Tylenol 650 mg p.o. q.4 hours p.r.n. pain. 13. Percocet 1 tablet p.o. q.4 hours p.r.n. pain 5/325 mg, total dose acetaminophen not to exceed 4000 mg per day. 14. DuoNeb 1 inhalation every 4 hours as needed p.r.n. dyspnea. 15. Zoloft 100 mg p.o. daily for depression. 16. Aspirin 81 mg p.o. daily for CAD. 17. Voltaren gel 1% application topically every 12 hours p.r.n. pain to the affected area. 18. Amitiza 8 mcg p.o. daily. 19. Cerave 1 application topically every night at h.s. for rash to the affected area. 20. Pramosone cream 1% one application topically twice daily for rash. 21. Vitamin D 800 units p.o. daily supplement. 22. Milk of magnesia 30 mL p.o. daily p.r.n. constipation. 23. Theragran-M one tablet p.o. daily supplement. This patient was managed by hospitalist, urology, and cardiology teams during this admission. PATIENT'S NAME: RADHA COPELAND [facility] AGE: 81 Y [address] ROOM: [place] [address] LOCATION: GPCU ADMIT DATE: 10/16/2016 Discharge Summary DISCHARGE DATE: 10/30/2016 FAMILY PHYSICIAN: Bakari Cardenas MD ATTENDING PHYSICIAN: Bartolome Gallo ASHWIN ESPANA MD MT/modl /[id number] CC: Bakari Cardenas MD d: 10/31/16 0251 t: 11/04/16 2133, DISCHARGE SUMMARY
--- NOTE | ~2016-10-16 | ECHO ---
Transthoracic Echocardiography Report (TTE) Demographics Patient Name RADHA COPELAND Date of Study 10/17/2016 R Patient Number [id number] Visit Number [id number] Date of 1935 Room Number G6334 Accession Number [id number] Gender Male Age 81 year(s) Referring Ronald Valerio Dye Colorist Formulator Linda Willoughby RVT Physician MD Cleo Ortega MD Physician Interpreting [facility] Surveillance Manager Physician Josselin CONNER Supervising Ordering Physician Cleo Ortega MD, MD/P Nurse [facility] A[facility] Conclusions Summary Normal LV size and systolic function.The estimated left ventricular ejection fraction is 55-60%. Mild concentric left ventricular hypertrophy. Diastolic function indeterminate due to patient's arrhythmia. Mildly dilated right ventricle with mildly reduced RV sysotlic function. Mild biatrial enlargement. No significant valvular abnormalities. Trivial pericardial effusion. Procedure Type of Study TTE procedure:2D Echocardiogram, M-Mode, Doppler , Color Doppler. Procedure Date Date: 10/17/2016 Start: 01:47 PM Indications:CHF. HR: 57 bpm M-Mode/2D Measurements LV Diastolic Dimension: 4.32 cm LV Systolic Dimension: 2.75 cm LV Septum Diastolic: 1.58 cm LV PW Diastolic: 1.76 cm AO Root Dimension: 2.9 cm Cardiac Output: 4.07 l/min AV Cusp Separation: 1.9 cm LVOT: 2.2 cm RV Base: 3.47 cm LVOT VTI: 18.8 cm RV Mid: 3.61 cm LV Stroke volume: 71.43 ml TAPSE: 1.24 cm TDI-S': 13.8 cm/s Doppler Measurements AV Peak Velocity: 1.45 m/s MV Peak E-Wave: 1.56 m/s AV Peak Gradient: 8.41 mmHg MV Peak A-Wave: 0.51 m/s AV Mean Gradient: 5 mmHg MV E/A Ratio: 3.05 LVOT Peak Velocity: 0.86 m/s MV P1/2t: 57 msec TR Gradient:37.45 mmHg PV Peak Velocity: 0.64 m/s PV Peak Gradient: 1.64 mmHg E' Septal Velocity: 0.09 m/s E' Lateral Velocity: 0.13 m/s Findings Left Ventricle Mild concentric left ventricular hypertrophy. Diastolic function indeterminate due to patient's arrhythmia. Right Ventricle Mildly reduced right ventricular function. Mildly dilated right ventricle. Left Atrium The left atrium is mildly dilated. Right Atrium The right atrium is mildly dilated. IVC not visualized due to poor subcostal window. Mitral Valve Mild mitral regurgitation by color Doppler. Mild mitral annular calcification. Aortic Valve There is trivial aortic regurgitation by color Doppler. Tricuspid Valve Mild tricuspid regurgitation by color Doppler. Pulmonic Valve Normal pulmonic valve structure and function. Pericardial Effusion Trivial pericardial effusion. Miscellaneous Visualized portions of the aortic root and ascending aorta appear normal in size. Pleural Effusion No evidence of pleural effusion. Signature dtt: JOSSELIN GREEN dtd: 10/17/16 [id number] Physician Self Edit
--- NOTE | ~2016-10-16 | HP ---
PATIENT'S NAME: RADHA COPELAND [facility] AGE: 81 Y [address] ROOM: [address] [place], [place] [address] LOCATION: GPCU ADMIT DATE: 10/16/2016 History & Physical DISCHARGE DATE: FAMILY PHYSICIAN: Bakari Cardenas MD ATTENDING PHYSICIAN: Bartolome Humphrey DATE OF SERVICE: ADDENDUM: D-dimer came back high at 6.57, and I called the patient's daughter, Josie, back already, the phone number is [phone], and I explained to the patient about the elevation of the D-dimer that it could be secondary to multiple causes including pulmonary embolism, which at this moment cannot be excluded given that the CT pulmonary angiogram could not be performed at the moment due to the CHIDI and the low GFR, and the ventilation perfusion scan will not take place until tomorrow morning, could also be from the infection from the left lower leg cellulitis, causing elevation of D-dimer, could also be from the CHIDI; these were the multiple reasons for elevation of D-dimer, but given that the patient did complain of dyspnea in the shelter and given the patient is a poor historian, I explained the benefit and risk to the patient's daughter, Josie, on the phone about starting heparin drip to cover him empirically for pulmonary embolism until ventilation perfusion scan show otherwise. The patient does have a history of rectal bleeding according to the patient's daughter from Coumadin use about 4 months ago for his paroxysmal atrial fibrillation. I offered the patient's daughter the option of using Lovenox 1 mg/kg b.i.d. or 1.5 mg/kg one time or use IV heparin drip, and given the IV heparin drip, if there is a bleeding, we can stop the IV heparin drip right away, and in case of Lovenox once is given cannot be reversed. Therefore, the patient's daughter agreed to proceed with IV heparin drip and watch him closely for any signs of bleeding. I am also going to start the patient on the contrast-induced nephropathy protocol for the patient given that the patient did receive IV contrast for the CT of the abdomen and pelvis that was performed in the emergency room with the GFR at that time low at 32. The patient already came here with CHIDI and a GFR of 32. This is prior to the IV contrast administration. Therefore, to prevent contrast-induced nephropathy on top of the normal saline hydration given him right now, I am also going to start him on the contrast-induced nephropathy protocol with the sodium bicarb per protocol. We will also try the Mucomyst if the patient is able to swallow. We will check the urine output very strictly, and the patient already has a Cabrera in place and has about 250 mL clear looking yellow urine. This is the overnight event and further plan will depend on the patient's clinical course, and when the shift is changed, will by the medical provider, who will be taking over the care of this patient. The patient is DNR/DNI, and the patient's daughter, who is the power of employment attorney also says to do everything nonaggressive and noninvasive and to not do anything aggressive PATIENT'S NAME: RADHA COPELAND [facility] AGE: 81 Y [address] ROOM: [place] [address] [facility] ADMIT DATE: 10/16/2016 History & Physical DISCHARGE DATE: FAMILY PHYSICIAN: Bakari Cardenas MD ATTENDING PHYSICIAN: Bartolome Humphrey or invasive. Further plan depends on clinical course. The patient's daughter is very realistic and understandable and is in agreement with the current plan. All questions and concerns were answered to her satisfaction. BARTOLOME HUMPHREY MD CC/modl /[id number] D: [id number] T: 010 HISTORY & PHYSICAL
--- NOTE | ~2016-10-16 | HP ---
PATIENT'S NAME: RADHA COPELAND [facility] AGE: 81 Y [address] ROOM: [id number] [place], [place] [address] LOCATION: GPCU ADMIT DATE: 10/16/2016 History & Physical DISCHARGE DATE: FAMILY PHYSICIAN: Bakari Cardenas MD ATTENDING PHYSICIAN: Bartolome Humphrey DATE OF SERVICE: ADDENDUM: Due to the shortage of sodium bicarbonate solution in the hospital and since studies have shown that normal saline is just as equally effective as sodium bicarb for contrast-induced nephropathy; therefore, due to the shortage of the sodium bicarbonate, we will continue with the current normal saline hydration at 100 mL/hr. We will check the kidney function again in rotary soil stabilizer operator hours to see if the GFR and creatinine are getting better or getting worse. Nephrology consult might be necessary if the kidney function is getting worse. Sodium bicarbonate will be given in combination with the current normal saline if the kidney function that will be checked in the next 2 hours come back worse. The patient is sleeping and is refusing to take anything p.o. Therefore, Mucomyst cannot be given at this time. Since 11 p.m., the patient has had about roughly 400 mL of urine output that is roughly in 5 hours. The patient weighs 87 kg; so, 0.5 mL/kg per hour, which should be the minimal urine output per hour; therefore, if I run the patient's weight from 86 up to 90 kg per hour and half of that will be 45 kg x5 hours equal 225 mL urine output; currently, he has roughly 250 mL urine output. We will follow up with the kidney function again in rotary soil stabilizer operator hours. ASSESSMENT AND PLAN: 1. Regarding his acute encephalopathy: Could be due to the fentanyl patch, which he uses 100 mcg, in care home, and he also became more awake, more alert, after receiving 3 doses of IV Narcan in the emergency room. For now, he is sleeping and I will stop the fentanyl patch for now and I will not give any more Narcan unless he becomes drowsy again. Watch closely for opioid withdrawal symptoms. Another cause of his acute encephalopathy could be the left lower extremity cellulitis. Less likely is a stroke given that there is no slurred speech and there is no gross focal neurological deficit. No facial droop. No slurred speech. Pronator drift is negative. I will also stop the home medication that can cause drowsiness including Remeron and all narcotics. 2. Further plan depends on clinical course. BARTOLOME HUMPHREY MD PATIENT'S NAME: RADHA COPELAND [facility] AGE: 81 Y [address] ROOM: [place] [address] LOCATION: [facility] ADMIT DATE: 10/16/2016 History & Physical DISCHARGE DATE: FAMILY PHYSICIAN: Bakari Cardenas MD ATTENDING PHYSICIAN: Bartolome Humphrey CC/yolanda /[id number] D: [id number] T: 020 HISTORY & PHYSICAL
--- NOTE | ~2016-10-16 | CON ---
PATIENT'S NAME: RADHA COPELAND [facility] AGE: 81 Y [address] ROOM: [place] [address] LOCATION: GPCU ADMIT DATE: 10/16/2016 Consultation DISCHARGE DATE: FAMILY PHYSICIAN: Bakari Cardenas MD ATTENDING PHYSICIAN: Bartolome aGllo DATE OF CONSULTATION: 10/17/2016 REFERRING PHYSICIAN: Dr. Gallo REASON FOR VISIT: Left lower extremity cellulitis. HISTORY OF PRESENT ILLNESS: This is an 81-year-old male patient who was admitted to [facility] with altered mental status. He has a significant history of dementia, atrial fibrillation, coronary artery disease, hypertension, CHF, and COPD. He was recently hospitalized at the end of September for bilateral lower leg cellulitis. The patient reports that he lives with his , but previous record suggest he is from a residential. The patient is a poor historian and hard of hearing. No family at bedside. Unable to tell me how long his cellulitis has been going on. He does complain he is cold and has a poor oral intake. He reports he is a nondiabetic. Per previous records, the patient was recently treated by his primary care provider with Rocephin, but no improvement in cellulitis. The patient was also complaining of shortness of breath on admit as well as lethargy. Currently, he is not complaining of lower extremity pain. PAST MEDICAL HISTORY: Per previous records: atrial fibrillation; obstructive sleep apnea; depression; coronary artery disease; dementia; BPH; systolic and diastolic congestive heart failure; hypertension; hyperlipidemia, GERD; COPD; renal cell carcinoma, status post nephrectomy; history of prostate cancer; and colitis. PAST SURGICAL HISTORY: Per previous records: coronary artery bypass grafting, colon resection, right nephrectomy, bilateral cataracts, right shoulder repair, lumbar laminectomy, and appendectomy. FAMILY HISTORY: Father had a brain hemorrhage. SOCIAL HISTORY: The patient reports he lives with his . Previous records suggest he is from a residential. He has a remote history of tobacco use. He denies alcohol use. PATIENT'S NAME: RADHA COPELAND [facility] AGE: 81 Y [address] ROOM: [address] [address] LOCATION: GPCU ADMIT DATE: 10/16/2016 Consultation DISCHARGE DATE: FAMILY PHYSICIAN: Bakari Cardenas MD ATTENDING PHYSICIAN: Bartolome Gallo ALLERGIES: MORPHINE. CURRENT MEDICATIONS: Please refer to the medication administration record. REVIEW OF SYSTEMS: Limited due to the patient's mentation and significant hearing deficit. See HPI for further details. PHYSICAL EXAMINATION: VITAL SIGNS: Temperature 97.5, pulse 60, respirations 16, blood pressure 110/56, and pulse oximetry 93% on 3 L. Height 5 feet 11 inches and weight 86.4 kg. GENERAL: The patient is pale. Poor historian. Alert to self. Appears lethargic. HEENT: Anicteric sclerae. Dry oral mucosa. Hard of hearing. NECK: Supple. ABDOMEN: Soft. EXTREMITIES: Doppled pedal pulses. +1 lower leg edema. +2 pitting feet edema. Heels intact. SKIN: Left anterior lower extremity ulcer measures 2.0 cm width x 3.0 cm length x 0.1 cm depth. Wound bed is red in color. Periwound is hot and erythemic. Slight erythema and staining to entire left leg. No open ulcers noted to right leg. Buttocks intact, but rust-colored stool present. Scattered ecchymosis to forearms. Groin folds intact. LABORATORY DATA: White blood cell count 9.8, hemoglobin 11.1, hematocrit 33.1, and platelets 266. Sodium 144, potassium 4.0, chloride 111, bicarbonate 23, BUN 42, creatinine 1.6, and glucose 90. Procalcitonin less than 0.05. ASSESSMENT AND PLAN: Again, this is an 81-year-old male patient who was admitted to [facility] with altered mental status. Wound care consult to evaluate left lower extremity cellulitis. 1. Left lower extremity cellulitis complicated by lower leg edema secondary to diastolic and systolic congestive heart failure. The patient would benefit from compressive therapy. We will have nursing apply size C Tubigrip to bilateral lower legs from toes to popliteal crease, on in the morning, off at bedtime. They are to elevate his legs on pillows at all times to keep his heels afloat. We will keep ulcer moist with Vaseline gauze. Currently, no signs of infection. We will continue antibiotic therapy. Wound culture pending. PATIENT'S NAME: RADHA COPELAND [facility] AGE: 81 Y [address] ROOM: [address] [place] [id number] [facility] ADMIT DATE: 10/16/2016 Consultation DISCHARGE DATE: FAMILY PHYSICIAN: Bakari Cardenas MD ATTENDING PHYSICIAN: Bartolome Gallo 2. Acute kidney injury. IV hydration. I would like to thank Dr. Gallo for this consultation. SWETHA VARGAS APRN FOR MD DENIS MORALES/modl /[id number] d: 10/17/16 1349 t: 11/01/16 1254, CONSULTATION REPORT
--- NOTE | ~2016-10-16 | ER ---
PATIENT'S NAME: RADHA COPELAND [facility] AGE: 81 Y [address] ROOM: [place] [address] LOCATION: GPCU ADMIT DATE: 10/16/2016 ER/Outpatient Report DISCHARGE DATE: FAMILY PHYSICIAN: Bakari Cardenas MD ATTENDING PHYSICIAN: Bartolome Gallo Time of Arrival: 2000 hours. Time of Evaluation: 2000 hours. CHIEF COMPLAINT: Unresponsive. HISTORY OF PRESENT ILLNESS: The patient is an 81-year-old male, who presents to the emergency department today with a chief complaint of being found unresponsive. The patient is a retirement resident at [facility]. They went on to check on him and he was found unresponsive with agonal respirations. The patient is DNR/DNI and was sent here for further evaluation. Upon arrival here, the patient is unresponsive. He is not answering any questions. He does have episodes of apnea. He appears to attempt to follow commands, but has difficulties with this. Family does arrive and daughter, and reports that he has had similar episodes like this in the past. He has had multiple workups and has not found out what the cause is. The nursing staff also obtained information from the retirement, and they do report that the patient has been recently treated for a cellulitis. He was changed from Omnicef to Rocephin IM at a dose of Rocephin 1 g IM as needed. The patient was seen and evaluated here in the emergency department on 09/27/2016 for an unresponsive episode. His old records are reviewed. PAST MEDICAL HISTORY: Dementia, hypertension, dyslipidemia, COPD, asthma, depression, gastroesophageal reflux disease, BPH, atrial fibrillation, GI bleed, and compression fracture of the lumbar spine. PAST SURGICAL HISTORY: Back surgery, CABG, and nephrectomy. SOCIAL HISTORY: The patient is currently at [facility]. Denies any tobacco, alcohol, or illicit drug use. ALLERGIES: NO KNOWN DRUG ALLERGIES. PATIENT'S NAME: RADHA COPELAND [facility] AGE: 81 Y [address] ROOM: [place] [address] LOCATION: GPCU ADMIT DATE: 10/16/2016 ER/Outpatient Report DISCHARGE DATE: FAMILY PHYSICIAN: Bakari Cardenas MD ATTENDING PHYSICIAN: Bartolome Gallo MEDICATIONS: 1. Ritalin. 2. CeraVe cream. 3. Cremaffin HC cream. 4. Voltaren Gel. 5. Amitiza. 6. Aspirin. 7. Crestor. 8. Flomax. 9. Lasix. 10. Multivitamin. 11. Prilosec. 12. Remeron. 13. Spiriva. 14. Toprol-XL. 15. TriCor. 16. Vitamin D3. 17. Zoloft. 18. Advair. 19. Exelon. 20. PreserVision. 21. Dulcolax. 22. Duragesic. 23. Endocet. 24. Lomotil. 25. Milk of mag. 26. Mucinex. 27. Tylenol. PRIMARY CARE DOCTORS: Bakari Cardenas MD. REVIEW OF SYSTEMS: All systems are reviewed by myself and are negative with the exception of those discussed in the HPI and past medical history. PHYSICAL EXAMINATION: VITAL SIGNS: Weight 89.5 kg, blood pressure 144/72, pulse 59, respiratory rate 12, temperature 97.9, oxygen saturation 94% on room air. GENERAL: The patient is an 81-year-old male, appears older than stated age. He is nonverbal at times to follow commands, but is not interactive. HEENT: Normocephalic. Pupils are pinpoint and reactive. Oropharynx is clear. NECK: Supple. No nuchal rigidity. CARDIOVASCULAR: Bradycardic. PATIENT'S NAME: RADHA COPELAND [facility] AGE: 81 Y [address] ROOM: [place] [address] [facility] ADMIT DATE: 10/16/2016 ER/Outpatient Report DISCHARGE DATE: FAMILY PHYSICIAN: Bakari Cardenas MD ATTENDING PHYSICIAN: Bartolome Gallo LUNGS: Clear to auscultation bilaterally. ABDOMEN: Soft with moderate tenderness to palpation diffusely. No rebound, rigidity, or guarding. Positive bowel sounds. MUSCULOSKELETAL: The patient has good muscle tone. SKIN: The patient does have some slight erythema noted in the left leg. There is a bullae-type lesion on the right lower extremity with no surrounding erythema. LABORATORY DATA AND X-RAYS: Labs and x-rays are obtained. EKG is obtained and interpreted by myself at 2006 hours shows atrial fibrillation with a rate of 55, left axis deviation, normal intervals. No ST elevation or ST depression. There is T-wave inversions in I and aVL. Venous blood gas 7.53/31/69/26/3.6. Lactate is 1.8. CBC is normal. Coag is normal. Ammonia is normal. CT scan of the head is obtained. I have discussed results with the radiologist. It shows age- related changes, otherwise, negative. CT scan of the abdomen and pelvis shows a fair amount of stool. There is a severe L2 compression fracture, otherwise, unremarkable. Urinalysis is negative. Procalcitonin is normal. CMP is unremarkable, except for BUN 53 and creatinine 2.0. LFTs are normal. Lipase is normal. Cardiac enzymes are normal. CRP is 2.9. Free T4 is normal. ProBNP is 5973. IMPRESSION: 1. Acute encepholopathy. 2. Episodes of apnea. 3. Acute generalized abdominal pain, unclear eitiology. 4. Dementia. 5. Congestive heart failure. 6. Acute on chronic kidney disease. 7. Constipation. 8. L2 compression fracture. 9. Initial visit. EMERGENCY DEPARTMENT COURSE: The patient was brought back to the examination room. He was seen and evaluated by myself. IV is established. Laboratory analysis and imaging are obtained as described above. The patient is given a liter of normal saline. The patient was given 0.1 mg of Narcan IV with no response. He was given 0.3 mg of Narcan IV with improvement in the patient's symptoms. Approximately an hour and half later, the patient was given another 0.4 mg of Narcan IV. I have discussed results with the patient, although he has minimal limited understanding of this, but the patient's daughter is at the bedside. I have discussed the results with the daughter and other family members at the bedside. I have recommended admission to the hospital for further evaluation, treatment, and management. I have consulted Dr. Cardenas, the patient's primary care doctor. He does request hospitalist admission. Dr. Gallo has PATIENT'S NAME: RADHA COPELAND [facility] AGE: 81 Y [address] ROOM: [place] [address] LOCATION: GPCU ADMIT DATE: 10/16/2016 ER/Outpatient Report DISCHARGE DATE: FAMILY PHYSICIAN: Bakari Cardenas MD ATTENDING PHYSICIAN: Bartolome Gallo seen and evaluated the patient down here in the emergency department. I have discussed the case with him as well. He does agree to accept the patient for further evaluation, treatment, and management. DISPOSITION: The patient admitted under the care of Dr. Gallo in fair condition. DO PO DICKSON/modl /[id number] d: 10/17/16 0406 t: 10/20/16 1822, OUTPATIENT REPORT
--- NOTE | ~2016-10-16 | CON ---
PATIENT'S NAME: RADHA COPELAND [facility] AGE: 81 Y [address] ROOM: [place] [address] LOCATION: GPCU ADMIT DATE: 10/16/2016 Consultation DISCHARGE DATE: FAMILY PHYSICIAN: Bakari Cardenas MD ATTENDING PHYSICIAN: Bartolome Gallo REFERRING PHYSICIAN: AXEL RUSHING HISTORY OF PRESENT ILLNESS: This is an 81-year-old male, who apparently has had problems with infection of the lower extremities. Also he has had marked mental changes and was found unresponsive and brought to the hospital. According to his daughter, he was having no voiding symptoms and no hematuria or other problems with the voiding. However, when a Cabrera catheter was inserted when he arrived at the hospital and he was also started on IV heparin and then he developed some hematuria. He has had a Cabrera with a three-way catheter and he has been on CBI for the hematuria. Presently, he is off all anticoagulants. 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 Since then, he has had no evidence of recurrence of his renal cell carcinoma or his cancer of the prostate. His PSAs have all been undetectable and his scans have all been unremarkable. He has had problems with azotemia and elevated BUN and creatinine. PHYSICAL EXAMINATION: GENERAL APPEARANCE: A well-developed male who is disoriented and unable to give an adequate history. ABDOMEN: Soft with no palpable masses. GENITOURINARY: Normal penis with urethral catheter in place, draining grossly clear urine with CBI. He has a right hydrocele. Left testicle is normal. Prostate is flat and benign to palpation. IMPRESSION: Hematuria probably secondary to trauma and IV heparin, although bladder problems could not be completely ruled out. RECOMMENDATIONS: I discussed Radha with his daughter and apparently, they want minimal amount of evaluation, but did think we should proceed with a cystoscopy and this is planned for Friday. PATIENT'S NAME: RADHA COPELAND [facility] AGE: 81 Y [address] ROOM: [place] [address] LOCATION: GPCU ADMIT DATE: 10/16/2016 Consultation DISCHARGE DATE: FAMILY PHYSICIAN: Bakari Cardenas MD ATTENDING PHYSICIAN: Bartolome Gallo JANELL MD SANTO MARIN/modl /[id number] d: 10/21/16 1402 t: 10/24/16 0440, CONSULTATION REPORT
--- NOTE | ~2016-10-16 | CON ---
[facility] AGE: 81 Y [address] ROOM: [place] [address] LOCATION: GPCU ADMIT DATE: 10/16/2016 Consultation DISCHARGE DATE: FAMILY PHYSICIAN: Bakari Cardenas MD ATTENDING PHYSICIAN: Bartolome Gallo DATE OF CONSULTATION: 10/22/2016 REFERRING PHYSICIAN: Dory Kirby PALLIATIVE CARE CONSULTATION LOCATION: [place] [address]. REASON FOR CONSULTATION: This is a Palliative Care referral for goals of care and patient and family support. HISTORY OF PRESENT ILLNESS: This 81-year-old male was admitted for altered mental status, left lower extremity pain, and dyspnea. This 81-year-old male was admitted from the detention. The patient had been treated for left lower extremity cellulitis several times on an outpatient basis and continued to get worse, more lethargic, increased shortness of breath, and some confusion. The patient recently was dismissed from the hospital on 10/05/2016. PAST MEDICAL HISTORY: 1. Atrial fibrillation. 2. Obstructive sleep apnea. 3. Depression. 4. Coronary artery disease. 5. Mild dementia. 6. BPH. 7. Systolic and diastolic congestive heart failure. 8. Hypertension. 9. Hyperlipidemia. 10. GERD. 11. COPD. 12. Renal cell carcinoma, status post nephrectomy. 13. History of prostate cancer. 14. Colitis. PAST SURGICAL HISTORY: 1. Coronary artery bypass grafting. 2. Colon resection. PATIENT'S NAME[facility] AGE: 81 Y [address] ROOM: [place] [address] LOCATION: GPCU ADMIT DATE: 10/16/2016 Consultation DISCHARGE DATE: FAMILY PHYSICIAN: Bakari Cardenas MD ATTENDING PHYSICIAN: Bartolome Gallo 3. Bilateral cataracts. 4. Right shoulder repair. 5. Lumbar laminectomy. 6. Appendectomy. 7. Colectomy in the past. 8. Open heart surgery with CABG at the age of 57. 9. Status right nephrectomy from renal cancer. 10. Status post radiation and seed implantation for prostate cancer in the past. FAMILY HISTORY: Father had a brain hemorrhage. Father with complications from a stroke at the age of 70. Mother from myocardial infarction in her 80s. SOCIAL HISTORY: The patient had been living at [facility], recently went to the detention. His is on hospice at [facility], does have a remote history of tobacco use. He was a former alcohol drinker, but quit many years ago. The patient had been a choudhury, is now retired. ALLERGIES: MORPHINE. CURRENT MEDICATIONS: See medication administration record. REVIEW OF SYSTEMS: A complete review of systems was done and is negative except as mentioned in the HPI and listed below. GENITOURINARY: Complains of bladder spasms. Better after a bowel movement and pain pill taken. No pain now. PSYCHIATRIC: He is tearful, worried about condition. States I do not have a long time left. MUSCULOSKELETAL: Does complain of some weakness and fatigue. PHYSICAL EXAMINATION: VITAL SIGNS: Temperature 98.0; pulse 84, regular; respirations 24; blood pressure 110/60; and O2 sats 97%. He is 5 feet 11 inches, weighs 190 pounds with a BMI of 26.5, on last admission BMI was 28.5 with a weight of 209 on 09/27. GENERAL: Alert and oriented to time and place. Recognizes daughter. SKIN: Warm and dry. Color pale. HEENT: Normocephalic and atraumatic. Sclerae are anicteric. Conjunctivae are pale pink. Mouth is pink and moist without exudate. PATIENT'S NAME: RADHA COPELAND [facility] AGE: 81 Y [address] ROOM: [place] [address] LOCATION: [facility] ADMIT DATE: 10/16/2016 Consultation DISCHARGE DATE: FAMILY PHYSICIAN: Bakari Cardenas MD ATTENDING PHYSICIAN: Bartolome Gallo LYMPHATICS: No cervical adenopathy or thyromegaly. RESPIRATORY: Clear to auscultation bilaterally. Breath sounds are even and regular throughout. CARDIAC: S1 and S2 without murmurs or bruits. ABDOMEN: Obese, soft. Some tenderness noted in the lower mid abdomen. No hepatosplenomegaly. EXTREMITIES: Left lower leg is wrapped with Ira, slight redness, opened stage II ulcer on the anterior left calf. 2+ pitting edema bilaterally. NEUROLOGICAL: Grossly intact. Sleepy. No deficits. PSYCHIATRIC: Depressed. Does not want to talk about feelings of being down. When asked about being down or depressed, patient states we do not talk about that. Does have a history of depression. MUSCULOSKELETAL: Appropriate range of motion. Decreased strength in lower extremities. EXTREMITIES: No cyanosis or deformities. Palliative performance scale is at 30%, totally bed bound, unable to do most activity, self-care or total care. Intake is reduced, minimal to sips. Conscious level is drowsy. Level of consciousness is full. IMPRESSION: 1. Pain. 2. Bladder spasms. 3. Depression. 4. Weakness and fatigue. PLAN: I met with the patient. The patient has a fair understanding of condition but is very depressed and states this is not life and he knows where he is going and he does not have long. I talked with his daughter and medical power of attorney law clerk, Josie Singleton. She has a good understanding of his lymphoma, recent infections, continuing to come back into the hospital. States prior to this 2 weeks ago, the patient was living at [facility], driving, and going over to feeding his daily. Has seen a big record changer the last couple conditions, has concerns of not getting on top of the infections and controlling it. GOALS OF CARE: 1. Talk with Dr. Kirby about the patient's overall condition and infections, and antibiotics. 2. Do the cysto as planned to hopefully remove the catheter. 3. Control infections with antibiotics. 4. Lomax patient's wishes are to do minimal invasive treatments after cysto, would like to have him skilled, but not wanting aggressive treatments overall. PATIENT'S NAME: RADHA COPELAND [facility] AGE: 81 Y [address] ROOM: [id number] [place] [id number] LOCATION: [facility] ADMIT DATE: 10/16/2016 Consultation DISCHARGE DATE: FAMILY PHYSICIAN: Bakari Cardenas MD ATTENDING PHYSICIAN: Bartolome Gallo Code status and advance directive: A copy of advance directive is on the chart. The patient is a do not resuscitate. RECOMMENDATIONS: 1. Pain, he is currently taking Momence p.r.n., has only taken Momence 1 time today. 2. Depression, active listening. May consider adding an antidepressant after cysto. He is currently on methylphenidate may be used for depression. May consider some mirtazapine, may help with appetite due to patient not eating and depressed, overall condition. Total time was 60 minutes with 50 minutes for counseling and coordination of care and education on advance directives, goals of care, and depression. Thank you for allowing me to assist this patient and family. SANFORD SOTO NP FOR MD PRIYA DAVIS/yolanda /[id number] d: 10/23/16 2312 t: 11/12/16 1350, CONSULTATION REPORT
--- NOTE | ~2016-10-16 | OR ---
PATIENT'S NAME: RADHA [facility] AGE: 81 Y [address] ROOM: [place] [address] LOCATION: GPCU ADMIT DATE: 10/16/2016 OR/Procedure Report DISCHARGE DATE: FAMILY PHYSICIAN: Bakari Cardenas MD ATTENDING PHYSICIAN: Bartolome Gallo SURGEON: Janell Servin MD COMMUNICATIONS TECHNICIAN: DATE OF PROCEDURE: 10/23/2016 PREOPERATIVE DIAGNOSIS: Hematuria. POSTOPERATIVE DIAGNOSES: 1. Malplaced Cabrera urethral catheter. 2. Prostatic hemorrhage. OPERATION: 1. Cystoscopy and evacuation of clots. 2. Cystoscopy and fulguration of prostatic bleeding. 3. Insertion of #20 three-way Cabrera catheter. DESCRIPTION OF PROCEDURE: After adequate anesthesia, he was prepped and draped. Cystoscope was passed. Anterior urethra was normal. There was some lateral lobe enlargement and bleeding from the prostatic urethra. Examination of the bladder revealed clots and these were all irrigated from the bladder. The bladder was examined and it was normal. There was no evidence of radiation cystitis or other abnormalities. The bleeding areas in the prostatic urethra were fulgurated. A 20 three-way Cabrera catheter was inserted. He was accompanied to recovery area. JANELL SERVIN MD EKL/modl /[id number] d: 10/23/16 1237 t: 10/25/16 0501, OPERATIVE SUMMARY
--- NOTE | ~2016-10-16 | HP ---
PATIENT'S NAME: RADHA COPELAND [facility] AGE: 81 Y [address] ROOM: [id number] [place], [place] [address] LOCATION: GPCU ADMIT DATE: 10/16/2016 History & Physical DISCHARGE DATE: FAMILY PHYSICIAN: Bakari Cardenas MD ATTENDING PHYSICIAN: Bartolome Gallo DATE OF SERVICE: CHIEF COMPLAINT: Altered mental status and left lower extremity pain and some degree of dyspnea. HISTORY OF PRESENT ILLNESS: This is an 81-year-old male, [facility] resident. The story is directly obtained from the patient's son and the daughter at the bedside and from [facility], given that the patient is a poor historian at the moment. The story is that the patient was recently treated for left lower extremity cellulitis and he got improvement and he was discharged from the hospital here on October 05, 2016, back to the [facility]. Last Friday, the left lower extremity pain from the cellulitis recurred again and the patient went to see the patient's primary care physician, Dr. Cardenas, and the patient received one dose of intramuscular ceftriaxone and on last Friday and Friday, the patient was doing better, but then the cellulitis got worse on this Friday and the patient got more intramuscular ceftriaxone on Friday and also this Friday. Today, [facility] staff called the patient's daughter, saying that the patient was lethargic around the suppertime and the patient might be complaining of shortness of breath, but the story was not clear. The patient occasionally says he was short of breath, but occasionally he says he was not short of breath, but the patient was found to be lethargic and complaining of left lower extremity pain. Therefore, the patient was brought here for evaluation. REVIEW OF SYSTEMS: As mentioned in the history of present illness. All other systems reviewed are negative except those mentioned in history of present illness. The patient specifically denies any chest pain or any cough or any shortness of breath here in the emergency room during my evaluation. PAST MEDICAL HISTORY: 1. Depression. 2. Obstructive sleep apnea, not on home CPAP because the patient refused. 3. Paroxysmal atrial fibrillation, not on anticoagulation given that the patient had rectal bleeding about 4 months ago and Coumadin was stopped by the primary care physician. Family also thinks that the rectal bleeding probably is from the prostate cancer. PATIENT'S NAME: RADHA COPELAND [facility] AGE: 81 Y [address] ROOM: [address] [address] LOC[facility] ADMIT DATE: 10/16/2016 History & Physical DISCHARGE DATE: FAMILY PHYSICIAN: Bakari Cardenas MD ATTENDING PHYSICIAN: Bartolome Gallo 4. Coronary artery disease, status post bypass CABG at age 57-year-old. 5. Dementia. 6. Benign prostatic hypertrophy. 7. 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 8. Hypertension. 9. Hyperlipidemia. 10. Gastroesophageal reflux disease. 11. COPD, not on home oxygen per medical records. 12. Renal cell carcinoma, status post nephrectomy. The patient is not sure which kidney. 13. History of prostate cancer, status post radiation seed implantation. 14. Colitis status post colectomy in the past. ALLERGIES: MORPHINE, NOT SURE WHAT REACTION. HOME MEDICATIONS: Will be reconciled by the medical staff. SOCIAL HISTORY: The patient was a former cigarette smoker. He quit about several years ago, not sure how much quantity. The patient was a former alcohol drinker, but he also quit many years ago according to the patient's daughter and son. He denies any illegal drug use. PAST SURGICAL HISTORY: 1. Status post colectomy in the past. 2. Status post open heart surgery and CABG at age of 57. 3. Status post nephrectomy from renal cancer, not sure which kidney. 4. Status post radiation seed implantation for prostate cancer in the past. FAMILY HISTORY: Father from complication from stroke at age 70 and mother from myocardial infarction at age in her 80s. PHYSICAL EXAMINATION: VITAL SIGNS: At the time of my dictation, temperature 98.5, blood pressure 110/70, MAP of 68, respirations 14, saturation 96% on 2 L nasal cannula, heart rate 85. GENERAL APPEARANCE: The patient is a bit drowsy and is a poor historian. No slurred speech. No acute distress. HEENT: Pupils are equally round and reactive to light, about size of 3 mm bilaterally. Anicteric sclerae. Nasal turbinates are normal bilaterally. Dry oral mucosa. PATIENT'S NAME: RADHA COPELAND [facility] AGE: 81 Y [address] ROOM: [id number] [place], [place] [address] LOCATION: [facility] ADMIT DATE: 10/16/2016 History & Physical DISCHARGE DATE: FAMILY PHYSICIAN: Bakari Cardenas MD ATTENDING PHYSICIAN: Bartolome Gallo NECK: No JVD. CARDIOVASCULAR: Irregularly irregular rate and rhythm. No murmur, no rubs, and no gallops. RESPIRATORY: Clear to auscultation. ABDOMEN: Obese, soft, very vague mild tenderness diffusely to palpation, no abdominal rigidity, bowel sounds are present, no palpable mass. EXTREMITIES: Left lower extremity in the left anterior calf, the patient has open wound, superficial ulcer about stage II with erythema and tenderness and warmth to palpation surrounding the stage II ulcer in the anterior left calf. On the right lower extremity, has a rupture or blister, very superficial on the right anterior calf also. Also, has +1 pitting edema in bilateral lower extremities. This is much better than his usual edema in the leg, according to the patient's daughter and the son. NEUROLOGIC: Drowsy and sleepy, cannot perform a full neurological exam. Negative pronator drift and no slurred speech, no facial droop. SKIN: Superficial ulcer stage II on the left anterior calf and also erythema in the left lower extremity, in the left anterior calf. LABORATORY DATA: ABG 7.53, pCO2 31, PO2 69, bicarbonate 25.9, saturation 96%. Lactic acid 1.8. This was done on 2 L nasal cannula. Ammonia 24. Troponin less than 0.04. CPK 166, proBNP 5973. White blood cells 8.9, hemoglobin 12.4, hematocrit 36.9, MCV 95.8, platelets 283, glucose 113, BUN 53, creatinine 2.0. Sodium 139, potassium 4.2, chloride 106, CO2 23, calcium 8.8, total protein 7.0, albumin 3.1, AST 33, ALT 32, alkaline phosphatase 60, total bilirubin 0.4. GFR 32. ESR 20. INR 1.05, PTT 27. Urinalysis, negative for UTI. Lipase 178, CK-MB 1.4, CRP 2.9, free T4 1.0, TSH 2.3, procalcitonin 0.05. IMAGING STUDIES: CT of the head without contrast on admission shows stable, no evidence of acute intracranial abnormality. CT of the abdomen and pelvis with contrast performed in the emergency room on admission showed no acute finding. Chronic changes. Mild worsening in the degree of height loss at the chronic L2 compression fracture compared with April 28, 2016. Chest x-ray on admission, official reading is pending. EKG on admission showed atrial fibrillation with heart rate in the 55, QRS 132 milliseconds, QTC 411 milliseconds, heart rate over 55, showed T inversion in the lead I and aVL. I went to [facility] and this is chronic. This was also present on June 21, 2013. No other acute ischemic changes. ASSESSMENT AND PLAN: 1. Regarding his left lower extremity cellulitis, I will cover him with IV Linezolid, and also IV Zosyn. I will get a wound culture and Gram stain PATIENT'S NAME: RADHA COPELAND [facility] AGE: 81 Y [address] ROOM: [id number] [place] [id number] LOCATION: [facility] ADMIT DATE: 10/16/2016 History & Physical DISCHARGE DATE: FAMILY PHYSICIAN: Bakari Cardenas MD ATTENDING PHYSICIAN: Bartolome Gallo of the left lower extremity stage II ulcer. Blood culture x2. Urine culture. IV fluids with 1 L over 2 hours and then maintenance at 100 mL/h. The patient's GFR was 32 on admission. The patient still got IV contrast of the CT of the abdomen and pelvis in the emergency room, therefore I am going to hydrate him with IV fluids to prevent contrast- induced nephropathy. Contrast was given in the emergency room for the CT scan of the abdomen and pelvis before I was notified to see the patient. Further plan depends on clinical course. 2. Regarding his acute kidney injury: I will hydrate him with IV normal saline 1 L over 2 hours and maintenance at 1 mL/h. I will put a Cabrera catheter to rule out postobstructive acute kidney injury. The patient looks dry on examination. The patient has a poor appetite recently. The patient has a dry oral mucosa. I will get a complete abdominal ultrasound in the morning to look for hydronephrosis. Also, I will be checking a urine electrolytes. Further plan depends on clinical course. 3. Regarding his dyspnea: The patient is a poor historian. Not sure if this is on exertion or on rest. The patient also says that currently he does not have any shortness of breath. I will get a D-dimer. If it is high, then the patient will need to get a ventilation and perfusion scan in the morning because at night, this is not performed. If D-dimer is high, I am going to cover him empirically with anticoagulation. The choice here could be IV heparin drip or could also be Lovenox. The patient does have a history of rectal bleeding while on Coumadin 4 months ago for history of paroxysmal atrial fibrillation. I will have to discuss with the family member about the risks and benefit of covering him with anticoagulation if the D-dimer is high. Currently, the patient does not have tachycardia and does not have a tachypnea and saturation is 96% on 2 L nasal cannula. Further plan depends on the D-dimer number and discussion with the family member. 4. Regarding his paroxysmal atrial fibrillation: The patient was on Coumadin before, but the Coumadin was stopped due to the rectal bleeding 4 months ago. If D-dimer is high, then in the setting of subjective sensation with dyspnea, therefore and the paroxysmal atrial fibrillation, currently in atrial fibrillation, I will favor IV heparin drip because if the patient has bleeding, IV heparin drip can be stopped right away. Home medication will be reconciled and then will be addressed. The patient is not in rapid ventricular rate. No chest pain. EKG, no new ischemic findings. Cardiac enzyme negative the first set. ProBNP is high, but this could be from the infection. The patient was dry on examination. For now, in the setting of a cellulitis, I will hydrate him with IV fluids. Further plan depends on clinical course. Watch him closely for volume overload. 5. Regarding his sleep apnea: The patient has obstructive sleep apnea, but is not on CPAP because the patient refused due to discomfort. For now, we will do oxygen nasal cannula titrate to keep the saturation more than PATIENT'S NAME: RADHA COPELAND [facility] AGE: 81 Y [address] ROOM: [place] [address] LOCATION: [facility] ADMIT DATE: 10/16/2016 History & Physical DISCHARGE DATE: FAMILY PHYSICIAN: Bakari Cardenas MD ATTENDING PHYSICIAN: Bartolome Gallo 90%. 6. Regarding his chronic obstructive pulmonary disease: Currently, there is no exacerbation. I will give him the nebulization p.r.n. per RT to titrate. No steroids required for now, not in flare. 7. Deep vein thrombosis prophylaxis, will depend on the on the D-dimer. If it is negative, I will do Lovenox subcu. If it is positive, I will talk to the family and I will consider starting him on IV heparin drip given that the patient has atrial fibrillation, likely for long time and also if D-dimer is high, the patient has dyspnea, we will have to wait for the ventilation perfusion scan to be done in the morning. Therefore, in the meantime, can cover him empirically with IV heparin drip if the patient's family agree. 8. CODE STATUS: He is a DO NOT RESUSCITATE/DO NOT INTUBATE. Time spent in care on the day of admission 50 minutes including chart review, interviewing the patient, examining the patient, addressing all the questions and concerns the patient and the family members had at the bedside. I also went over the plan of care in detail with the patient, the patient family member, both the daughter and the son. The daughter is the power of after school program director. Her name is Josie, phone number is [phone] and the son is Uvaldo, phone number is [phone]. The patient and the patient's family members are in agreement with the plan. Further plan depends on clinical course. MD SHIMON LA/yolanda /[id number] D: [id number] T: [id number] HISTORY & PHYSICAL
--- NOTE | ~2016-10-16 | DS ---
PATIENT'S NAME: RADHA COPELAND [facility] AGE: 81 Y [address] ROOM: [address] [place], [place] [address] LOCATION: GPCU ADMIT DATE: 10/16/2016 Discharge Summary DISCHARGE DATE: FAMILY PHYSICIAN: Bakari Cardenas MD ATTENDING PHYSICIAN: Bartolome Gallo PRINCIPAL DIAGNOSES: 1. Pseudomonas urinary tract infection. 2. Failure to thrive. 3. Hematuria. 4. Physical deconditioning. 5. Acute hypoxic respiratory failure secondary to volume overload. HOSPITAL COURSE: This is an 81-year-old male with history of recurrent UTIs and recurrent admissions and hospitalizations due to this. He presented with similar complaints, and was noted to have Pseudomonas UTI. The patient had been treated with IV Zosyn for a while, and then later switched to Levaquin once the sensitivity for urine cultures were back. The patient, from the UTI standpoint and infection/sepsis standpoint, did well. However, the patient does seem to have mood swings and possible depression, and that had perhaps been more a challenging thing to manage during his hospitalization. He was started on Zoloft during hospitalization, and for some reason, his mood swings actually tend to deteriorate when he is on that. At this point, I felt with the depression and I have been able to engage in conversations with him, and that seems to work the best for him. In any case, the patient was also noted to have some hematuria at the Cabrera catheter site, and was evaluated by Urology and had a cystoscopy done, which showed that the most likely cause for the hematuria was a malpositioned Cabrera catheter and Cabrera trauma. Due to patient's physical deconditioning, Cabrera catheter is still in place, and the plan is to get the Cabrera catheter out once the patient is able to ambulate a bit better. The patient did have episodes of shortness of breath, which turned out to be from volume overload during hospitalization as well, and had done well from that standpoint with diuresis. The plan going forward, is to find placement for patient that is appropriate. Further management is per the physician taking over care. MD RADAMES RESENDEZ/yolanda /[id number] d: 10/28/16 0109 t: 11/11/16 1523, DISCHARGE SUMMARY
[~2016-10-16 20:01] MED LIST changes: -ANUSOL-HC CREAM30 GM R; -CERAVE TOP; -CHLORASEPTIC SP1 BOT PO; -DOXYCYCLINE100 MG PO; -DULCOLAX10 MG R; -DURAGESIC 100100 MCG TRANS; -ENDOCET 10-3251 EACH PO; -KEFLEX500 MG PO; -MUCINEX600 MG PO; -MYCOLOG CREAM 330 GM TOP; -PERCOCET 5-3251 EACH PO; -PERIDEX15 ML PO; -PRAMOSONE TOP; -PRESERVISION A1 EACH PO; -REMERON15 MG PO; -RITALIN 10MG10 MG PO; -SEROQUEL25 MG PO; -THERAGRAN-M1 TAB PO; -TOPROL XL25 MG PO; -ULTRAM50 MG PO
[2016-10-16 20:34] LABS: BICARBONATE 25.9 mmol/L (18.0-23.0); LACTATE 1.8 mEq/L (0.50-1.60); PCO2 31 mmHg (35-45); PO2 69 mmHg (80-90)
[2016-10-16 20:36] LABS: BASOPHIL # 0.1 K/uL (0.0-0.2); BASOPHIL % 0.8 %; EOSINOPHIL # 0.3 K/uL (0.0-0.5); EOSINOPHIL % 2.9 %; HEMATOCRIT 36.9 % (33.0-50.0); HEMOGLOBIN 12.4 g/dL (11.0-16.0); IMMATURE GRANULOCYTE % 0.2 %; LYMPHOCYTE % 34.2 %; MCH 32.2 pg (27.0-34.0); MCHC 33.6 gm/dL (32.0-36.5); MCV 95.8 fl (83.0-98.0); MONOCYTE # 1.1 K/uL (0.0-1.0); MPV 10.8 fl (9.4-12.4); NEUTROPHIL # (ANC) 4.4 K/uL (1.4-9.0); NEUTROPHIL % 49.9 %; NRBC % 0 /100WBC (0-0.00); PLATELET COUNT 283 K/uL (150-450); RBC 3.85 M/uL (3.50-5.50); RDW-CV 14.1 % (11.9-14.6); WBC 8.9 K/uL (4.0-11.0)
[2016-10-16 20:43] LABS: INR - (THERAPEUTIC) 1.05 (0.92-1.07); PTT 27 SECONDS (25-32)
[2016-10-16 21:03] LABS: ALBUMIN 3.1 gm/dL (3.5-5.0); ALK PHOS 60 IU/L (33-138); ALT 22 IU/L (12-78); ANION GAP 14.2 (10.0-19.0); AST 33 IU/L (10-40); CALCIUM 8.8 mg/dL (8.5-10.5); CHLORIDE 106 mMol/L (96-110); CO2 23 mMol/L (22-32); CPK 166 IU/L (35-332); POTASSIUM 4.2 mMol/L (3.7-5.1); SODIUM 139 mMol/L (135-145); TOTAL BILIRUBIN 0.4 mg/dL (0.0-1.5)
[2016-10-16 21:05] LABS: BLOOD UREA NITROGEN 53 mg/dL (6-24); ESTIMATED GFR (MDRD EQUATION) 32
[2016-10-16 21:11] LABS: BILIRUBIN URINE NEGATIVE (NEGATIVE); BLOOD URINE NEGATIVE /UL (NEGATIVE); COLOR URINE YELLOW (YELLOW); GLUCOSE URINE NEGATIVE (NEGATIVE); KETONE URINE NEGATIVE (NEGATIVE); LEUKOCYTES URINE NEGATIVE /UL (NEGATIVE); NITRITE URINE NEGATIVE (NEGATIVE); PROTEIN URINE NEGATIVE (NEGATIVE); TURBIDITY URINE CLEAR (CLEAR); UROBILINOGEN URINE NORMAL (NORMAL)
[2016-10-16] MEDS ORDERED: RITALIN 10MG10 MG PO (23:41)
[2016-10-17] MEDS ORDERED: DULCOLAX10 MG R (00:10)
--- NOTE | 2016-10-17 02:36 | NUR ---
Pt admitted via ed. Portillo in ed x2 for unresponsiveness. from [facility] .
--- NOTE | 2016-10-17 05:11 | NUR ---
Pt unresponsive most of the night except for painful stimuli. Occasionally opens eyes to sound. doesn't respond to questions. q2 turn. q2 hour bp. HR 40-60's, afebrile. 2L NS bolus given, con't on NS at 100. started on heparin ptthp at 0900. started on zyvox and zosyn for cellulitis of LLE. Has open area to LLE that is actually crusted over-WOC consult placed. Has redness/open area to buttocks. Was given 0.8mg of narcan in ED with little to no results. Cont on 3L NC and ETCO2 monitoring. Family wishes to do everything at this time as long as it is not invasive. Plan: Needs Palliative care consult. needs wound culture if WOC debrides urbina
[2016-10-17 07:18] LABS: CALCIUM 7.9 mg/dL (8.5-10.5); CREATININE 1.6 mg/dL (0.6-1.3)
[2016-10-17 08:28] LABS: BASOPHIL # 0.1 K/uL (0.0-0.2); BASOPHIL % 0.6 %; EOSINOPHIL # 0.2 K/uL (0.0-0.5); EOSINOPHIL % 2.3 %; HEMATOCRIT 33.1 % (33.0-50.0); HEMOGLOBIN 11.1 g/dL (11.0-16.0); IMMATURE GRANULOCYTE % 0.4 %; LYMPHOCYTE # 3.5 K/uL (0.8-4.0); LYMPHOCYTE % 36.2 %; MCH 32.2 pg (27.0-34.0); MCHC 33.5 gm/dL (32.0-36.5); MCV 95.9 fl (83.0-98.0); MONOCYTE # 0.9 K/uL (0.0-1.0); MONOCYTE % 9.4 %; MPV 10.8 fl (9.4-12.4); NEUTROPHIL % 51.1 %; NRBC % 0 /100WBC (0-0.00); PLATELET COUNT 266 K/uL (150-450); RBC 3.45 M/uL (3.50-5.50); WBC 9.8 K/uL (4.0-11.0)
--- NOTE | 2016-10-17 12:15 | NUR ---
Patient sleeping and no family present at this time. Spoke with patient's nurse and reviewed chart. Patient lives at [facility] and anticipate he will return there. Did speak with Irma at [facility] and let her know I am following him. Will follow.
[2016-10-17 18:25] LABS: HEMATOCRIT 32.3 % (33.0-50.0)
[2016-10-17 23:25] LABS: HEMATOCRIT 30.8 % (33.0-50.0); HEMOGLOBIN 10.3 g/dL (11.0-16.0)
[2016-10-18 01:10] LABS: CPK 134 IU/L (35-332)
[2016-10-18 02:14] LABS: BASOPHIL # 0.1 K/uL (0.0-0.2); BASOPHIL % 0.8 %; EOSINOPHIL # 0.1 K/uL (0.0-0.5); EOSINOPHIL % 1.5 %; HEMATOCRIT 31.4 % (33.0-50.0); HEMOGLOBIN 10.6 g/dL (11.0-16.0); IMMATURE GRANULOCYTE % 0.3 %; LYMPHOCYTE # 1.8 K/uL (0.8-4.0); LYMPHOCYTE % 25.1 %; MCH 32.6 pg (27.0-34.0); MCHC 33.8 gm/dL (32.0-36.5); MCV 96.6 fl (83.0-98.0); MONOCYTE # 0.8 K/uL (0.0-1.0); MONOCYTE % 10.8 %; MPV 10.7 fl (9.4-12.4); NEUTROPHIL # (ANC) 4.5 K/uL (1.4-9.0); NEUTROPHIL % 61.5 %; NRBC % 0 /100WBC (0-0.00); PLATELET COUNT 229 K/uL (150-450); RBC 3.25 M/uL (3.50-5.50); WBC 7.3 K/uL (4.0-11.0)
[2016-10-18 02:23] LABS: HEMATOCRIT 31.4 % (33.0-50.0)
[2016-10-18 02:37] LABS: ANION GAP 13.9 (10.0-19.0); CALCIUM 7.6 mg/dL (8.5-10.5); CREATININE 1.4 mg/dL (0.6-1.3); POTASSIUM 3.9 mMol/L (3.7-5.1)
--- NOTE | 2016-10-18 03:57 | NUR ---
Significant Event: VSS, PT AFEBRILE. CONTINUES ON RA WITH SATS IN THE MID 90'S. REPOSITIONED EVERY 2 HOURS. NO BM NOTED THIS SHIFT, STILL NEED TO STOOLS FOR HEMATESTS. PT DENIES PAIN EXCEPT WHEN MOVED-THEN LEFT LEG HURTS. 2 TO 3+ EDEMA IN THE LOWER LEGS, MORE SO IN THE LEFT. IV INFUSING INTO LEFT HAND. HGB HAS REMAINED STABLE-10.6 AT 2, CARDIAC ENZYMES NEGATIVE. PT VERY DROWSY, WAS ABLE TO TAKE PO PILLS BUT DOES NOT TALK MUCH. DOES NOT CALL. Follow up:
[2016-10-18 12:08] LABS: HEMOGLOBIN 10.6 g/dL (11.0-16.0)
[2016-10-18 12:20] LABS: HEMATOCRIT 32.3 % (33.0-50.0)
--- NOTE | 2016-10-18 12:30 | NUR ---
Family not present at this time. Nurse reports daughter was here earlier and went back to work. Will follow.
[2016-10-18 14:56] LABS: BILIRUBIN URINE NEGATIVE (NEGATIVE); BLOOD URINE 250 /UL (NEGATIVE); COLOR URINE RED (YELLOW); GLUCOSE URINE NEGATIVE (NEGATIVE); KETONE URINE NEGATIVE (NEGATIVE); LEUKOCYTES URINE 100 /UL (NEGATIVE); NITRITE URINE NEGATIVE (NEGATIVE); PH URINE 6.5 (4.0-8.0); PROTEIN URINE 100 mg/dL (NEGATIVE); TURBIDITY URINE 4+ (CLEAR); UROBILINOGEN URINE NORMAL (NORMAL)
[2016-10-18 15:06] LABS: BACTERIA URINE NEGATIVE (NEGATIVE); EPITHELIAL URINE NEGATIVE #/HPF (NEGATIVE); MUCUS URINE NEGATIVE (NEGATIVE); RBC URINE 50-100 #/HPF (NEGATIVE)
--- NOTE | 2016-10-18 16:55 | NUR ---
Significant Event:Patient has been drowsy today. More awake this afternoon, but doesn't always make sense. Did take PO meds with water. No difficulty with swallowing. Refused to take more than bites for breakfast or lunch. Urine has been bloody throughout day, is clearing towards end of shift. Sent UA to lab. Last Hgb at 1100-11.0. Daughter doesn't feel that they would want to cath or have pacemaker at this time. Has D5W infusing at 70 ml/hr. Accuchecks Q4 hours. Follow up:Monitor mental status, accuchecks Q4hr
--- NOTE | 2016-10-18 17:00 | NUR ---
D:Patient's daughter Natalie here. Talked with her about cardiac consult. Daughter didn't feel at this time they would be interested in doing a heart cath or pacemaker. She thought that he became more alert and oreintated, they might then consider it. The daughter states her and the patient had talked several times about what he would and wouldn't want done. Cardiology signed off, and said if things changed they should be consulted again.
--- NOTE | 2016-10-18 17:03 | NUR ---
D:Patient has been drowsy, less this afternoon. But doesn't make sense, doesn't always answer questions. Has refused to take more than bites for meals, but has taken meds without difficulty.
--- NOTE | 2016-10-18 17:05 | NUR ---
D:Patient's urine this am at first rounds was bloody. The urine in the bag was clear yellow, and the urine in the tubing was red. No clots noted. Dr. Quinteros was informed, he felt would clear up. To let him know if there was clots, if doesn't clear will get Urology consult. At 1530, urine did look like if was starting to clear. At times looks more yellow and less red. No clots.
[2016-10-18 17:50] LABS: HEMATOCRIT 30.5 % (33.0-50.0); HEMOGLOBIN 10.5 g/dL (11.0-16.0)
[2016-10-18 19:36] LABS: CPK 92 IU/L (35-332)
[2016-10-19 01:45] LABS: CPK 69 IU/L (35-332)
--- NOTE | 2016-10-19 04:06 | NUR ---
Patient alert oriented to self and sometimes knows he is in a hosptial. VSS on RA. Had some chest pain beginning of shift, ekg and cardiac enzymes (-). Pain resolved on its own. Lungs clear. Bowel sounds present, 1 scant BM last night.
[2016-10-19 07:00] LABS: BASOPHIL # 0.1 K/uL (0.0-0.2); EOSINOPHIL # 0.3 K/uL (0.0-0.5); EOSINOPHIL % 3.7 %; HEMOGLOBIN 10.8 g/dL (11.0-16.0); IMMATURE GRANULOCYTE # 0.1 K/uL (0.0-0.3); IMMATURE GRANULOCYTE % 1.4 %; LYMPHOCYTE # 1.6 K/uL (0.8-4.0); LYMPHOCYTE % 22.3 %; MCHC 33.8 gm/dL (32.0-36.5); MCV 94.7 fl (83.0-98.0); MONOCYTE # 0.7 K/uL (0.0-1.0); MONOCYTE % 9.4 %; MPV 10.4 fl (9.4-12.4); NEUTROPHIL # (ANC) 4.3 K/uL (1.4-9.0); NEUTROPHIL % 62.2 %; NRBC % 0 /100WBC (0-0.00); PLATELET COUNT 228 K/uL (150-450); RBC 3.38 M/uL (3.50-5.50)
[2016-10-19 07:33] LABS: ANION GAP 15.8 (10.0-19.0); CALCIUM 7.8 mg/dL (8.5-10.5); CREATININE 1.2 mg/dL (0.6-1.3); POTASSIUM 3.8 mMol/L (3.7-5.1)
--- NOTE | 2016-10-19 18:37 | NUR ---
D:Pateint had 8 beats of V-Yach. No c/o pain. This was at 1352. Dr. Navarro made rounds and told him about it, showed him the tracing from Tele. Dr. Quinteros also told about the V-Tach. No orders. Dr. Quinteros did stop and talk with family.
--- NOTE | 2016-10-19 18:39 | NUR ---
Significant Event:Patient has been more alert today. Daughter here and he was aware and reconized her. Did talk with her some. He can't remember he is in the hospital. D5W resarted at 70 ml/hr. Heparin subq restarted. Cabrera is clearer, lite pink to anthony color. PT/OT saw him, but patient wasn't even able to dangle. Had 8 beats of V-Tach, asymptomatic. Poor appetite. Follow up:Monitor accuchecks while on D5W, encourage PO intake
--- NOTE | 2016-10-20 05:10 | NUR ---
Patient more oriented and alert this shift. VSS on RA. PT/OT working with patient, very weak. Lung clear. Bowel sounds present, 3 incont BMs this shift. Cabrera was changed to CBI, because of clots and dark bloody urine. IV to LT outer AC. ACCU checks Q4hrs. Percocet at bedtime and after CBI was place. Ate better last night. Repo Q2hrs.
[2016-10-20 06:03] LABS: BASOPHIL % 0.7 %; EOSINOPHIL # 0.2 K/uL (0.0-0.5); EOSINOPHIL % 3.6 %; HEMATOCRIT 30.3 % (33.0-50.0); HEMOGLOBIN 10.3 g/dL (11.0-16.0); IMMATURE GRANULOCYTE % 0.2 %; LYMPHOCYTE # 1.8 K/uL (0.8-4.0); LYMPHOCYTE % 30.3 %; MCH 32.1 pg (27.0-34.0); MCV 94.4 fl (83.0-98.0); MONOCYTE # 0.7 K/uL (0.0-1.0); MONOCYTE % 11.6 %; MPV 10.9 fl (9.4-12.4); NEUTROPHIL # (ANC) 3.1 K/uL (1.4-9.0); NEUTROPHIL % 53.6 %; NRBC % 0 /100WBC (0-0.00); PLATELET COUNT 210 K/uL (150-450); RBC 3.21 M/uL (3.50-5.50); RDW-CV 14.1 % (11.9-14.6); WBC 5.8 K/uL (4.0-11.0)
[2016-10-20 06:15] LABS: ANION GAP 14.6 (10.0-19.0); CALCIUM 7.9 mg/dL (8.5-10.5); CREATININE 1.4 mg/dL (0.6-1.3); POTASSIUM 3.6 mMol/L (3.7-5.1)
--- NOTE | 2016-10-20 17:49 | NUR ---
Significant Event:Patient has been alert and oreintated, appropriate today. Has retained information. Appetite slightly better. Has had CBI going, urine has been pale lite pink to pale yellow with some mucous shreds noted. No pain. Has used call light. Follow up:DC CBI at end of this shift if urine remains clear.
--- NOTE | 2016-10-21 05:06 | NUR ---
Patient oriented to self and place most of the time. VSS on RA. Lift patient, PT/OT working with him. Lungs clear. Bowel sounds present, 2 Sm BM this shift. NEED STOOL SAMPLE FOR CDIFF. IV LT AC intermit antibotics. CBI off at 1830 then turned back on at 0200 d/t clots and bladder spasms. Urology to see in am. For spasm gave fentanyl, B&O suppository, and percocet. Repo q2hrs.
[2016-10-21 07:06] LABS: BASOPHIL % 0.5 %; EOSINOPHIL # 0.3 K/uL (0.0-0.5); EOSINOPHIL % 2.9 %; HEMATOCRIT 28.7 % (33.0-50.0); IMMATURE GRANULOCYTE % 0.3 %; LYMPHOCYTE # 2.5 K/uL (0.8-4.0); LYMPHOCYTE % 29.2 %; MCH 32.5 pg (27.0-34.0); MCHC 34.8 gm/dL (32.0-36.5); MCV 93.2 fl (83.0-98.0); MONOCYTE # 0.8 K/uL (0.0-1.0); MONOCYTE % 8.9 %; MPV 10.3 fl (9.4-12.4); NEUTROPHIL # (ANC) 5.1 K/uL (1.4-9.0); NEUTROPHIL % 58.2 %; NRBC % 0 /100WBC (0-0.00); PLATELET COUNT 193 K/uL (150-450); RBC 3.08 M/uL (3.50-5.50); RDW-CV 14.1 % (11.9-14.6); WBC 8.7 K/uL (4.0-11.0)
[2016-10-21 07:19] LABS: CALCIUM 7.7 mg/dL (8.5-10.5); CREATININE 1.4 mg/dL (0.6-1.3)
--- NOTE | 2016-10-21 11:31 | NUR ---
A - NUTRITION F/U. HX DEMENTIA. A/O X 2. GLU 92, BUN/LIGHT BULB ASSEMBLER 20/1.4. PT W/ 1-2+ BLE EDEMA. STAGE 2 PU LLE. DIET: CARDIAC W/ ENSURE BID. INTAKE 0-50%. D - AT RISK W/ INADEQUATE ORAL INTAKE R/T DECREASED APPETITE AEB INTAKE RECORD. I - GOAL: 50% OR BETTER INTAKE BY DISMISSAL. M/E - CONT TO ENCOURAGE MEAL AND SUPPLEMENT INTAKE. F/U IN 2-4 DAYS.
--- NOTE | 2016-10-21 18:53 | NUR ---
Significant Event: ALERT & ORIENTED TO QUESTIONS BUT FORGETFUL. USES CALL LIGHT APPROPRIATELY. VSS, AFEBRILE, ROOM AIR, DYSPNEA ON EXERTION. UP WITH 2-3 ASSIST, PIVOT. CONTINUE CBI. PERCOCET GIVEN ONCE FOR DISCOMFORT. BM SMEAR. Follow up: [facility] FRIDAY, CONSENTS NEED SIGNED BY BENTON CASTANEDA PLANNING TO VISIT FRIDAY, R&B DISCUSSED VIA PHONE.
--- NOTE | 2016-10-22 05:15 | NUR ---
Significant Event: A/O x3. Forgetful/confused at times. Afebrile. Spontaneous bladder spasm pains. Refused pain med during shift. CBI currently running. VSS on RA. SBP 120-170s. HR 60-70s. CBI running. Lasix gtt running @ 10/hr. Levaquin iv started. [place] up'courtney. Turn q 2 hours. Follow up: Continue to monitor per plan of care.
[2016-10-22 06:32] LABS: HEMATOCRIT 29.5 % (33.0-50.0); HEMOGLOBIN 10.1 g/dL (11.0-16.0)
[2016-10-22 06:46] LABS: ANION GAP 12.8 (10.0-19.0); CALCIUM 8.2 mg/dL (8.5-10.5); CREATININE 1.4 mg/dL (0.6-1.3); POTASSIUM 3.8 mMol/L (3.7-5.1)
--- NOTE | 2016-10-22 15:30 | NUR ---
Spoke with patient's daughter/LEONEL Estrada regarding discharge plans. She plans on patient returning to [facility] when ready for discharge. . Patient's is on hospice at [facility]. Will follow.
--- NOTE | 2016-10-22 16:46 | NUR ---
Significant Event: ANWSERS ORIENTATIONS QUESTIONS APPROPRIATELY BUT SLOW TO RESPOND AT TIMES. INCREASED WEAKNESS FROM YESTERDAY NOTED PER OT. UP WITH 2 ASSIST, GB AND WALKER. PALLIATIVE CARE CONSULT. BLOODY STOOL X1 THIS AFTERNOON. LASIX GTT DC'D THIS AM D/T SBP IN 80'S, NS 500 ML BOLUS X1, SBP 90'S-110'S. NPO AFTER MIDNIGHT FOR SURGERY IN AM. CBI CONTINUES THROUGH LU AT VERY SLOW RATE. Follow up: [facility] PLANNED FOR TOMORROW WITH DR.EK TEMPLETON, CONSENTS SIGNED.
--- NOTE | 2016-10-23 04:58 | NUR ---
Significant Event:VSS.RA. MAP HAS BEEN >65. C/O PAIN THROUGHOUT BODY. REPOSITION FREQ. LU INTACT WITH CBI. NPO AFTER MIDNIGHT FOR CYSTO. A-FIB PER TELE. DRESSING TO L LEG IS CDI. Follow up:CONT WITH PLAN OF CARE
--- NOTE | 2016-10-23 05:48 | NUR ---
Significant Event: Follow up:
--- NOTE | 2016-10-23 11:30 | NUR ---
Spoke with patient's daughter, Natalie. She says she is still concerned as he is weak and just not back to baseline. She says he was walking prior to admission and feeding his and fairly independent. She says patient complained to her last night that 3 or his teeth hurt. She wonders if he has infection somewhere that they have not found. She asks about infectious disease coverage. Told her ID from [place] come out to [facility] once a week. Says she has been missing talking with the hospitalists and is staying today until she talks to them. Told her Dr. Kirby is following her Dad this week. Told her I will pass along her concerns to him. [facility] came into room at this time and I left so they could meet. Talked to Dr. Kirby and updated him. He says he will make sure and visit with daughter today. Will follow.
--- NOTE | 2016-10-23 17:12 | NUR ---
Significant Event: ALERT, ORIENTED X3. C/O PAIN TO ABDOMEN AND PENIS. PERCOCET GIVEN LAST @ 1335. TYLENOL GIVEN @ 1530. POOR APPETITE. LU CATHETER PATENT WITH CBI @ SLOW RATE, 750 ML UOP. SCROTUM AND PENIS ELEVATED ON TOWEL FOR EDEMA. PIV SL'D TO LEFT ARM. ROOM AIR. VSS. BM X1, INCONTINENT. Follow up:
--- NOTE | 2016-10-24 04:59 | NUR ---
Significant Event:VSS.RA. PT REMAINS CONFUSED AT TIMES. RE-ORIENTATION FREQ. C/O MIN PAIN TO LOWER ABDOMEN AND SCROTUM ELEVATED.NORCO GIVEN ONCE THIS SHIFT. CBI CONT PER ORDER. LU INTACT. CLEAR TO YELLOW URINE RATE IS SLOW. Follow up:ENCOURAGE PT TO GET OUT OT BED, MOBILITY
--- NOTE | 2016-10-24 14:30 | NUR ---
A-NUTRITION F/U CONFUSED AT TIMES. PALLIATIVE CONSULT. 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 PO INTAKE HAS BEEN REFUSALS-100%. EST NUTR NEEDS: 8142-9002 KCALS AND 78-94 GM PROTEIN D-AT NUTRITION RISK W/INADEQUATE ORAL INTAKE R/T DECREASED APPETITE AEB 5% WT LOSS X 2 WEEKS TELEPHONE SWITCHBOARD OPERATOR I-INCREASE ENSURE FROM BID TO TID, TO PROVIDE ADDITIONAL NUTRIENTS M/E-GOAL: PO INTAKE >/=50% BY NEXT F/U 1)F/U PO INTAKE, SUPPLEMENT, AND POC IN 4-5 DAYS 2)ASSIST NEEDED
--- NOTE | 2016-10-24 16:26 | NUR ---
Significant Event: pt did eat half peanut butter/jelly today. CBI mostly off today, clear yellow urine pink only seconds, good uop. Zoloft started. Pt very depressed, sleeps all day. Percocet for back pain. Pill started for bladder inf.pain, urine can discolor. PT OT need work with pt doc.pt activity. Follow up:
--- NOTE | 2016-10-25 04:18 | NUR ---
Patient A/Ox3 sometimes forgetful. Depressed and withdrawn. Repo Q2hrs. IV to Lt AC saline locked. Lungs clear. Bowels sounds present, incont of stool x2. Cabrera 510ml out, CBI slow rate. Percocet x2 for pain in back and abdomen.
--- NOTE | 2016-10-25 16:52 | NUR ---
Significant event: Drowsy this shift, able to follow commands.HR 70-80's. Afebrile. On RA. SBP 120-140's. PT stood with patient, heavy 2 assist, sat in chair today. 1+ tibial edema. Lungs clear/diminished. Bowel sounds active. Catheter intact, orange urine, 350 ml out. Refused meals today, drank 60 ml of ensure, offered some favorite foods per family input, but was not interested. Dressings to L) urbina changed. Percocet given x 2, last at 1550. Zoloft discontinued today. Follow Up: Encourage activity, encourage intake. Family will be in, tomorrow AM.
--- NOTE | 2016-10-26 04:02 | NUR ---
Patient A/Ox3. VSS on RA. Heavy 2 assist PT/OT working with patient. Lungs clear. Bowel sounds present. Cabrera 350out. IV LT AC saline locked. Depressed and withdrawn. Dressing to lt lower leg cellulitsis. Cabrera will remain in until patient is ambulatory.
--- NOTE | 2016-10-26 13:43 | NUR ---
PT A/OX3, FORGETFUL AT TIMES, OTHERWISE NO FOCAL DEFICITS. VSS, AFEBRILE, PALE, SLIGHTLY MOIST AT TIMES, AND WARM TO TOUCH. PULSES 1+ DISTALLY WITH DEPENDENT 1+ EDEMA T/O. APATHETIC DEMEANOR, FULL LIFT TO CHAIR AND LITTLE EFFORT TO DO THINGS BY PT. PT/OT WORKED WITH PT WITH MINIMAL EFFORT, FAMILY AT BEDSIDE TO ENCOURAGE. FAIR ORAL INTAKE, NO C/O N/V/D; SLIGHT ABD PAIN WITH ONE PERCOCET GIVEN AROUND 0800 WITH RELIEF. BS HYPOACTIVE, NO FLATUS NOR BM. LU CATH WITH CBI OFF AND DK YELLOW UOP WITHOUT ANY BLOOD. C/O SLIGHT BLADDER PAIN OR IRRITATION BUT NOT LIKE "IT WAS BEFORE." PIV X1 TO L)FA S.L. SKIN WITH AREAS OF REDNESS TO BUTTOCKS AND SCATTERED ECCHYMOSIS; L) ROSADO WITH TWO AREAS OF PREVIOUS CELLULITIS AND HEALING AT THIS TIME WITH SMALL DRSG'S AND NO DRNG.
--- NOTE | 2016-10-27 03:08 | NUR ---
SIGNIFICANT EVENT: Patient answers, yes/no questions. Withdrawn and sleepy but oriented. VSS on RA. Heavy 2PA. LS clear to clear & diminished. BS are hypoactive, refused both lunch and dinner trays yesterday. Cabrera patent, drained 360 mL orange urine - is to remain in place until pt is ambulatory. Percocet x1, last at 2009. L) lower leg cellulitis - dressing is C/D/I. Cooperative with cares.
--- NOTE | 2016-10-27 19:11 | NUR ---
Significant Event:A/Ox3. VSS on RA. Patient much more talkative today. Visit from family really perked patient up. Patient was lifted to the chair but transfered back to the bed 2 assist with walker/gaitbelt. BM x2. Patient more motivated to walk as he knows it means that his gibson is closer to coming out. PIV to L)AC saline locked. Follow up:Continue with POC.
--- NOTE | 2016-10-28 05:20 | NUR ---
SIGNIFICANT EVENT: Patient alert, confused at times. VSS on RA. Heavy 2PA. Cardiac diet. Ate well at dinner. Q2h turn. Gibson draining orange urine - 425 out. maintains order to keep gibson in place until pt is ambulating. PO 620 mL in. 1 mod loose BM. Cooperative with cares.
--- NOTE | 2016-10-28 13:00 | NUR ---
Call from patient's nurse that his son is here and wants to talk about patient going to a different facility. Son told nurse his sister/POA is out of state and he is also POA. Checked with [facility] regarding male bed availability. Spoke with patient and his son. Son says they have been talking and patient would prefer another facility. He says he doesn't like the ladies that are at his table in the dining room, as they steal his food. Son says it is also hard for him to be in the same facility as his and not be able to help with her cares, etc. They say his first choice would be [facility]. Told them I talked with [facility] and they do not have a male bed at this time. Told them [facility] does not have male beds and [facility] does have male beds. Son says they will stay at [facility]. He says they have his bed on hold at [facility]. Son asks if I will check at [facility] again before patient is discharged. Told them I can do that. Will follow.
[2016-10-29 05:03] LABS: BASOPHIL # 0.1 K/uL (0.0-0.2); BASOPHIL % 0.7 %; EOSINOPHIL # 0.4 K/uL (0.0-0.5); EOSINOPHIL % 5.8 %; IMMATURE GRANULOCYTE % 0.6 %; LYMPHOCYTE # 1.9 K/uL (0.8-4.0); LYMPHOCYTE % 25.7 %; MCH 32.2 pg (27.0-34.0); MCHC 34.5 gm/dL (32.0-36.5); MCV 93.2 fl (83.0-98.0); MONOCYTE # 0.7 K/uL (0.0-1.0); MONOCYTE % 9.5 %; MPV 10.7 fl (9.4-12.4); NEUTROPHIL # (ANC) 4.2 K/uL (1.4-9.0); NEUTROPHIL % 57.7 %; NRBC % 0 /100WBC (0-0.00); PLATELET COUNT 199 K/uL (150-450); RBC 3.11 M/uL (3.50-5.50); RDW-CV 14.1 % (11.9-14.6); WBC 7.3 K/uL (4.0-11.0)
--- NOTE | 2016-10-29 05:11 | NUR ---
Significant Event:A/Ox3. VSS on RA. Afebrile. Patient much more conversational, complains of pain to his penis and bladder from gibson. Urine looks much better not orange now yellow. Patient requested percocet q4h to stay on top of pain control. Last dose at 0430. Per report patient did walk to the door and ambulate in the room with PT. Patient states that he still feels weak but will do anything to have the catheter out. Follow up:Continue to work on ambulation. ?Back to CT...
[2016-10-29 05:26] LABS: ANION GAP 12.7 (10.0-19.0); BLOOD UREA NITROGEN 28 mg/dL (6-24); CALCIUM 8.3 mg/dL (8.5-10.5); CHLORIDE 112 mMol/L (96-110); CO2 21 mMol/L (22-32); CREATININE 1.1 mg/dL (0.6-1.3); POTASSIUM 3.7 mMol/L (3.7-5.1); SODIUM 142 mMol/L (135-145)
[2016-10-29 05:27] LABS: ESTIMATED GFR (MDRD EQUATION) > 60
--- NOTE | 2016-10-29 12:30 | NUR ---
Spoke with Irma at [facility]. She says patient's bed is on hold through thru the Medicare bed hold guidelines. She says if he comes back Friday or later he will be considered a new admission and will need new ID screen etc. Told her think he is getting closer to discharge but not sure when yet. She did come see him this a.m. and says that would count as her assessment if he has to be readmitted. Plan for transfer to [facility] when medically stable for transfer. Will follow.
--- NOTE | 2016-10-29 13:58 | NUR ---
A-NUTRITION F/U SPOKE WITH PT RE: SUPPLEMENTS, FOOD, AND APPETITE. PT DOES NOT LIKE THE ENSURE ENLIVE. HIS APPETITE IS IMPROVING AND HE DOES NOT WANT ANY SUPPLEMENTS. PT DID STATE THAT HE WANTS TO PICK HIS MEALS AND DOES NOT WANT A TRAY SENT UP THAT HE DID NOT PICK OUT. 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 PT HAD BEEN REFUSING MOST MEALS, BUT PO INTAKE HAS IMPROVED TO 75-100% SINCE 10/27. PT HAD 100% OF HIS BRK AND LUNCH TODAY. EST NUTR NEEDS: [id number] KCALS AND 78-94 GM PROTEIN D-AT NUTRITION RISK W/RECENT INADEQUATE ORAL INTAKE R/T POOR APPETITE AEB INTAKE RECORDS, PT REPORT. I-ENSURE ENLIVE TID D/C PER PT REQUEST M/E-GOAL: PO INTAKE >/=75% FOR REMAINDER OF ADMIT 1)F/U PO INTAKE AND POC IN 4-6 DAYS 2)ASSIST NEEDED
--- NOTE | 2016-10-29 16:41 | NUR ---
Significant Event: A/O X 3. PERCOCET FOR BACK PAIN. CONT. WITH LU IN PLACE, URINE OUTPUT 250 ML.NO BLOOD NOTED IN URINE, VERY CONCENTRATED. AFEBRILE. HR A-FIB, RATES 54-80'S. UP IN CHAIR WITH TWO HEAVY ASSIST. NOT TAKING STEPS WELL PER PT. PT. HAD A RUN OF V-TACH 15 BEATS, AND TWO TRIPLET PVC'S. ASYMTHMATIC. K+3.7, GIVEN ORAL KCL. SATS 95% ON ROOM AIR. GETS SHORT OF BREATH WITH ACTIVITY. Follow up: PLAN TO RETURN TO [facility]. CONT. TO [facility]ITER URINARY STATUS.
--- NOTE | 2016-10-30 05:27 | NUR ---
Significant Event: Patient alert and oriented. Repositioned side to side. VSS on room air. Percocet given x [address] Servin in this am and discontinued gibson. 350 ml urine out. Pleasant and cooperative with cares. Follow up: continue to monitor
[2016-10-30 06:54] LABS: ANION GAP 13.1 (10.0-19.0); BLOOD UREA NITROGEN 27 mg/dL (6-24); CALCIUM 8.4 mg/dL (8.5-10.5); CHLORIDE 111 mMol/L (96-110); CO2 22 mMol/L (22-32); ESTIMATED GFR (MDRD EQUATION) > 60; MAGNESIUM 2.1 mg/dL (1.8-2.6); POTASSIUM 4.1 mMol/L (3.7-5.1); SODIUM 142 mMol/L (135-145)
--- NOTE | 2016-10-30 11:55 | NUR ---
Several calls with Irma from [facility]. Drs say he is ready for transfer to [facility] today. Dr. Quinteros talked with patient and daughter that was here. They asked about [facility] and were told he requires more assistance than [facility] can provide and needs to go to SNF and work on therapies and then transition to PENITENTIARY. Dr. Quinteros also called Natalie on the phone. I talked with patient and let him know transfer time. He wishes he didn't have to return to [facility]. Left [facility] for daughter Natalie regarding transfer time, etc. Orders faxed. Nurse will call nurse to nurse report. Patient to transfer to [facility] for skilled care at 1300 via [facility].
--- NOTE | 2016-10-30 13:34 | NUR ---
Alert and oriented; sometimes off a year or two. Cooperative with cares. Up w/2+ assist, gait belt, and walker. Had TURP. Catheter pulled @0500 today. Voiding large amount x2; incontinent x1, needs assist with urinal. Tubigrips to lower extremities. Vital signs stable, afebrile, on room air (can be slightly hypotensive when resting). Denies nausea, vomiting, diarrhea, and pain. History of UTIs and Afib. IV removed from left arm;small skin tear below left a/c from tape pull. DNR while here.
[2017-01-08] MEDS ORDERED: SEROQUEL25 MG PO (10:22)
[2017-01-08] MEDS ORDERED: ULTRAM50 MG PO (10:22)
[2017-01-08] MEDS ORDERED: ANUSOL-HC CREAM30 GM R (10:22)
[2017-01-08] MEDS ORDERED: PERIDEX15 ML PO (10:23)
[2017-01-08] MEDS ORDERED: KEFLEX500 MG PO (10:32)
== END 2016-10-30 13:00 | DRG 853 ==
LOC: GAMB 20:01 → GMED 20:01 → GPCU 22:41
PROVIDERS: Emergency Medicine; Family Medicine; Nurse Practitioner Family; ADMIT Internal Medicine
DX: A41.9 Sepsis, unspecified organism (principal); G93.40 Encephalopathy, unspecified; J96.01 Acute respiratory failure with hypoxia; I21.4 Non-ST elevation (NSTEMI) myocardial infarction; N17.9 Acute kidney failure, unspecified; L03.116 Cellulitis of left lower limb; I48.0 Paroxysmal atrial fibrillation; S32.020A Wedge compression fracture of second lumbar vertebra, initial encounter for closed fracture; I13.0 Hypertensive heart and chronic kidney disease with heart failure and stage 1 through stage 4 chronic kidney disease, or unspecified chronic kidney disease; I50.42 Chronic combined systolic (congestive) and diastolic (congestive) heart failure; N39.0 Urinary tract infection, site not specified; B96.5 Pseudomonas (aeruginosa) (mallei) (pseudomallei) as the cause of diseases classified elsewhere; E78.5 Hyperlipidemia, unspecified; Z51.5 Encounter for palliative care; Z66 Do not resuscitate; F03.90 Unspecified dementia, unspecified severity, without behavioral disturbance, psychotic disturbance, mood disturbance, and anxiety; G47.33 Obstructive sleep apnea (adult) (pediatric); H91.90 Unspecified hearing loss, unspecified ear; K59.00 Constipation, unspecified; L89.892 Pressure ulcer of other site, stage 2; K21.9 Gastro-esophageal reflux disease without esophagitis; J44.9 Chronic obstructive pulmonary disease, unspecified; Z95.1 Presence of aortocoronary bypass graft; Z92.3 Personal history of irradiation; Z85.528 Personal history of other malignant neoplasm of kidney; N42.1 Congestion and hemorrhage of prostate; E66.9 Obesity, unspecified; N18.3 Chronic kidney disease, stage 3 (moderate); Z68.26 Body mass index [BMI] 26.0-26.9, adult
CPT/HCPCS: A9539; A9540; J1644; J1940; J1956; J2020; J2310; J2543; J3010; J7030; J7040; J7050; J7060; J7120; J7612; Q9967

== ENCOUNTER → 2016-10-16 | Outpatient (CLI) | payer MEDICARE, OTHER ==
[~2016-10-16] MED LIST changes: +AMITIZA8 MCG PO; +ANUSOL-HC CREAM30 GM R; +CERAVE TOP; +CERAVE453 GM TOP; +CHLORASEPTIC SP1 BOT PO; +DOXYCYCLINE100 MG PO; +DULCOLAX10 MG R; +DURAGESIC 100100 MCG TRANS; +ENDOCET 10-3251 EACH PO; +KEFLEX500 MG PO; +MILK OF MA400 MG/5 M PO; +MUCINEX600 MG PO; +MYCOLOG CREAM 330 GM TOP; +PERCOCET 5-3251 EACH PO; +PERIDEX15 ML PO; +PRAMOSONE TOP; +PRESERVISION A1 EACH PO; +REMERON15 MG PO; +RITALIN 10MG10 MG PO; +SEROQUEL25 MG PO; +THERAGRAN-M1 TAB PO; +TOPROL XL25 MG PO; +ULTRAM50 MG PO; +VITAMIN D-40400 UNIT PO
== END | disposition disaster alternative care site (69) ==
LOC: GAMB 19:42
DX: A41.9 Sepsis, unspecified organism (principal); F03.90 Unspecified dementia, unspecified severity, without behavioral disturbance, psychotic disturbance, mood disturbance, and anxiety; I10 Essential (primary) hypertension; I70.90 Unspecified atherosclerosis; N18.3 Chronic kidney disease, stage 3 (moderate); R40.20 Unspecified coma; Z79.82 Long term (current) use of aspirin; Z79.899 Other long term (current) drug therapy; Z88.5 Allergy status to narcotic agent
CPT/HCPCS: A0422; A0425; A0427

== ENCOUNTER 2016-11-03 20:34 | Inpatient (IN) | payer MEDICARE, OTHER ==
[~2016-11-03] VITALS: Ht 182.9 cm; Wt 87.3 kg
--- NOTE | ~2016-11-03 | HP ---
PATIENT'S NAME: RADHA COPELAND [facility] AGE: 81 Y [address] ROOM: [place] [address] LOCATION: [facility] [place] ADMIT DATE: 11/03/2016 History & Physical DISCHARGE DATE: FAMILY PHYSICIAN: Physician, Unknown ATTENDING PHYSICIAN: Bartolome Humphrey DATE OF SERVICE: CHIEF COMPLAINT: Hematuria and difficulty urinating. HISTORY OF PRESENT ILLNESS: This is an 81-year-old male, intermediate resident, who says that for the last few days he has been experiencing difficulty urinating and today he has noted some hematuria. He says that he also has occasional urge to urinate but with difficulty. He occasionally complains of dysuria, but he is not sure if today he had dysuria. Because of the difficulty with urination and also with hematuria, the patient was sent over here for evaluation. In the emergency room, a bladder scan showed 150 mL of urine in the bladder. Blood work grossly unremarkable. The hemoglobin 10.9, hematocrit 31.1 compared to the previous number in the [facility] is at baseline. Urinalysis was not able to be obtained given the patient is having difficulty urinating. Cabrera will not be placed given that last admission the patient had Cabrera- induced trauma, hematuria, required Urology evaluation. The patient will be admitted for observation and consult Urology in the morning. REVIEW OF SYSTEMS: As mentioned in the history of present illness. All other systems were reviewed and were negative except those mentioned in history of present illness. PAST MEDICAL HISTORY: 1. Recurrent urinary tract infection in the past. 2. Some degree of dementia. 3. Hard of hearing. 4. Paroxysmal atrial fibrillation, not on Coumadin. 5. Recent hematuria secondary to Cabrera catheter-induced trauma. 6. History of benign prostatic hypertrophy. 7. Coronary artery disease, status post CABG at age 57. 8. Hypertension. 9. Hyperlipidemia. 10. Gastroesophageal reflux disease. 11. COPD, not on home oxygen. 12. History of renal cell carcinoma, status post nephrectomy. 13. History of prostate cancer, status post radiation and seed implantation. PATIENT'S NAME: RADHA COPELAND [facility] AGE: 81 Y [address] ROOM: [place] [address] LOCATION: [facility] [place] ADMIT DATE: 11/03/2016 History & Physical DISCHARGE DATE: FAMILY PHYSICIAN: Physician, Unknown ATTENDING PHYSICIAN: Bartolome Humphrey 14. Colitis, status post colectomy in the past. 15. Paroxysmal atrial fibrillation, not on anticoagulation due to history of rectal bleeding and recent Cabrera insertion induced trauma and hematuria. 16. Depression. Most recent echo on October 17, 2016, showed EF of 55-60%. Unable to determine the patient's diastolic function due to the patient's arrhythmia. On October 23, 2016 due to malplaced Cabrera urethral catheter and prostatic hemorrhage, the patient underwent a cystoscopy and evacuation of clots, cystoscopy and fulguration of prostatic bleeding, and the insertion of three- way Cabrera catheter. ALLERGIES: MORPHINE. HOME MEDICATIONS: Will be reconciled in the morning and be addressed once the list is ready. SOCIAL HISTORY: The patient was a former cigarette smoker, he quit several years ago, not sure how much and for how long. The patient was a former alcohol drinker, but he denies any alcohol abuse. He also denies any illegal drug use. PAST SURGICAL HISTORY: 1. Status post colectomy. 2. Status post CABG. 3. Status post nephrectomy. 4. Status post radiation seed implantation for prostate cancer in the past. 5. Status post cystoscopy and evacuation of clots and fulguration of prostatic bleeding and insertion of three-way Cabrera catheter on October 23, 2016. FAMILY HISTORY: Father from complication from stroke at old age and mother from myocardial infarction at age 80. There will be an addendum. BARTOLOME HUMPHREY MD CC/modl PATIENT'S NAME: RADHA COPELAND [facility] AGE: 81 Y [address] ROOM: [place] [address] LOCATION: [facility] [place] ADMIT DATE: 11/03/2016 History & Physical DISCHARGE DATE: FAMILY PHYSICIAN: Physician, Unknown ATTENDING PHYSICIAN: Bartolome Humphrey /[id number] HISTORY & PHYSICAL
--- NOTE | ~2016-11-03 | ER ---
PATIENT'S NAME: RADHA COPELAND [facility] AGE: 81 Y [address] ROOM: [place] [address] LOCATION: [facility] [place] ADMIT DATE: 11/03/2016 ER/Outpatient Report DISCHARGE DATE: FAMILY PHYSICIAN: Physician, Unknown ATTENDING PHYSICIAN: Bartolome Gallo TIME OF ARRIVAL: 2033 hours. TIME SEEN: 2039 hours. IDENTIFICATION: An 81-year-old male. CHIEF COMPLAINT: Urinary retention. HISTORY OF PRESENT ILLNESS: The patient was just recently in the hospital for a left lower extremity cellulitis treated with antibiotics and the Pseudomonas urinary tract infection. While he was here in the hospital on October 16, he had a malplaced Cabrera catheter with prostatic hemorrhage and had a cystoscopy, evacuation of clots, and fulguration of prostatic bleeding per Dr. Servin. He said he has had a little decreased urine output since he went home on the ; however, today, he has not been able to pass his urine and what has passed has been grossly bloody. He has some suprapubic discomfort, tenderness, and pain with urination. No nausea, vomiting. No other problems or concerns. He lives at [facility]. ALLERGIES: TO MORPHINE. CURRENT MEDICATIONS: 1. Lasix 40 mg 5 days per week Friday, Friday, Friday, , and Friday. 2. TriCor 145 mg at bedtime. 3. Ritalin 10 mg b.i.d. 4. Prilosec 20 mg daily. 5. Rivastigmine 6 mg b.i.d. 6. Crestor 40 mg at h.s. 7. Flomax 0.4 mg at h.s. 8. Spiriva 18 mcg. 9. Advair 250/50 1 puff b.i.d. 10. Tylenol 650 mg q.4 h. p.r.n. pain. PATIENT'S NAME: RADHA COPELAND [facility] AGE: 81 Y [address] ROOM: [place] [address] LOCATION: [facility] [place] ADMIT DATE: 11/03/2016 ER/Outpatient Report DISCHARGE DATE: FAMILY PHYSICIAN: Physician, Unknown ATTENDING PHYSICIAN: Bartolome Gallo 11. Percocet 1 tablet q.4 h. p.r.n. pain. 12. DuoNeb q.4 h. as needed. 13. Zoloft 100 mg daily. 14. Aspirin 81 mg daily. 15. Voltaren gel 1% topically every 12 hours. 16. Amitiza 8 mcg daily. 17. CeraVe application topically every night for rash. 18. Pramosone cream 1% b.i.d. for rash. 19. Vitamin D 800 international units daily. 20. Milk of magnesia 30 mL p.r.n. constipation. 21. Theragran M daily. MEDICAL PROBLEMS: 1. Recent cellulitis. 2. Recent UTI. 3. Depression. 4. Obstructive sleep apnea. 5. Paroxysmal atrial fibrillation, not on chronic anticoagulation. 6. Coronary artery disease, status post CABG. 7. Dementia. 8. BPH. 9. Systolic congestive heart failure. 10. Diastolic congestive heart failure. 11. Hypertension. 12. Hyperlipidemia. 13. Gastroesophageal reflux disease. 14. COPD. 15. Renal cell carcinoma, status post nephrectomy. 16. History of prostate cancer, status post radiation and seed implantation. 17. Colitis, status post colectomy. PRIOR SURGERIES: Colectomy, CABG, nephrectomy, radiation seed implantation for prostate cancer, and recent cystoscopy. FAMILY HISTORY: Father age 70 with stroke. Mother age 80 of [place]. SOCIAL HISTORY: The patient lives at [facility]. Tobacco use, denies. Alcohol use, denies. Drug use, denies. REVIEW OF SYSTEMS: All systems reviewed and negative other than what is noted in the HPI. PATIENT'S NAME: RADHA COPELAND [facility] AGE: 81 Y [address] ROOM: [address] [address] LOCATION: [facility] [place] ADMIT DATE: 11/03/2016 ER/Outpatient Report DISCHARGE DATE: FAMILY PHYSICIAN: Physician, Unknown ATTENDING PHYSICIAN: Bartolome Gallo PHYSICAL EXAMINATION: VITAL SIGNS: Blood pressure 102/53, pulse 63, respirations 18, temp 97.6, and sats 97% on room air. GENERAL: Pale 81-year-old male with a flat affect and very hard of hearing. HEENT: Head: Normocephalic, atraumatic. Eyes: Pupils equal and reactive to light and accommodation. Extraocular movements intact. Nose: Mucosa pink. No lesions. Mouth: No lesions. Pharynx benign. TMs not visualized. NECK: Supple. No lymphadenopathy. LUNGS: Clear to auscultation. HEART: Regular rate and rhythm. ABDOMEN: Bowel sounds present. Soft, nondistended, tender to palpation suprapubic. No rebound or guarding. No CVA tenderness. SKIN: [place], warm, and dry. EXTREMITIES: Lower extremities, he has ASHLEY hose on bilaterally, slight erythema to his left lower extremity, trace of edema. LABORATORY DATA: Bladder scan reveals 150 mL of urine. Sodium 142, potassium 4.3, chloride 110, CO2 21, BUN 28, creatinine 1.2, blood sugar 126. Liver enzymes normal. Hemoglobin 10.9, hematocrit 31.1, platelets 442, and white count 8.3 with a normal differential. EMERGENCY DEPARTMENT COURSE: Percocet 5/325 one p.o. given in the emergency room for pain and Zofran 4 mg for nausea. IMPRESSION: 1. Hematuria and painful urination with a history of urinary retention. There was only 150 mL on bladder scan. I did discuss this with Dr. Ramírez who at this time because of his complicated history with the catheter did not recommend a catheter placement. The patient will be admitted by Dr. Gallo hospitalist for observation and we will try to get the urine to obtain for UA. 2. History of cellulitis, improved. 3. All other medical problems per the past medical history. EJSSIKA CARBAJAL MD CAR/modl /[id number] d: 11/04/16 0309 t: 11/04/16 0404, OUTPATIENT REPORT
--- NOTE | ~2016-11-03 | HP ---
PATIENT'S NAME: RADHA COPELAND [facility] AGE: 81 Y [address] ROOM: [address] [address] [place] [facility] [place]: 11/03/2016 History & Physical DISCHARGE DATE: FAMILY PHYSICIAN: Physician, Unknown ATTENDING PHYSICIAN: Annette Humphrey DATE OF SERVICE: ADDENDUM: PHYSICAL EXAMINATION: VITAL SIGNS: Temperature 97.9, heart rate 58, respirations 18, blood pressure 111/59, saturation 98% on room air. GENERAL APPEARANCE: Alert and oriented x3, in no acute distress. HEENT: Pupils are equally round and reactive to light. Extraocular muscles are intact. Anicteric sclerae. Nasal turbinates are normal bilaterally. Moist oral mucosa. NECK: No JVD. CARDIOVASCULAR: Regular rate and rhythm. No murmur, no rubs, no gallops. Normal S1, S2. RESPIRATORY: I could appreciate some right lower lung crackles. Otherwise, clear to auscultation in other areas. No wheezing, no rales, no rhonchi. ABDOMEN: Obese, soft, nontender, nondistended, bowel sounds are present and there is no mass. EXTREMITIES: No edema in upper or lower extremities. He does have erythema in bilateral lower extremities, the left more than the right. Nontender to palpation. No edema. SKIN: Erythema as mentioned before, in bilateral lower extremities. Left side more than the right side. NEUROLOGICAL: Grossly nonfocal. LABORATORY DATA: White blood cells 8.3, hemoglobin 10.9, hematocrit 31.1, MCV 98.7, platelets 442. Glucose 126, BUN 28, creatinine 1.2. Sodium 142, potassium 4.3, chloride 110, CO2 21, calcium 8.4. Total protein 5.8, albumin 2.6, AST 23, ALT 17, alkaline phosphatase 60, total bilirubin 0.3. Anion gap 15.3. GFR 58. Globulin 3.2. IMAGING STUDY: Chest x-ray on admission, the official reading is pending. Please follow up with the official report. ASSESSMENT AND PLAN: 1. Regarding his hematuria and difficulty with urination: We will consult Urology in the morning. Avoid Cabrera catheter insertion until evaluation PAT[facility] AGE: 81 Y [address] [place]OM: [facility] [place], [place] [address] [place] [facility] [place]: 11/03/2016 History & Physical DISCHARGE DATE: FAMILY PHYSICIAN: Physician, Isis ATTENDING PHYSICIAN: Annette Humphrey by Urology for further recommendation. I will check hemoglobin again later today and then one in the morning. Get a blood type and screen in case the patient will require transfusion. We will collect urine for urinalysis and then for urine culture when the patient voids. Currently, the patient is comfortable and does not complain of any pain. Home medication will be addressed once the list is ready. I will be give him tamsulosin for his history of benign prostatic hypertrophy. Further plan will depend on clinical course. 2. Regarding his bilateral groin Teressa intertrigo: I will apply nystatin cream topically bilaterally. 3. Once we have the urinalysis, we can decide about starting antibiotics or not for urinary tract infection. Currently, there is no leukocytosis. The patient's vital signs were within normal limits. 4. Regarding his paroxysmal atrial fibrillation: Currently, in sinus rhythm. The patient is not on blood thinner at home due to hematuria and previous gastrointestinal bleeding. Home medication will be addressed once the list is ready. 5. Regarding his coronary artery disease status post CABG at age 57: No chest pain. The patient had an kil-TE-[id number] elevation myocardial infarction on last admission, but the patient refused further evaluation. Currently, the patient denies any chest pain. 6. Regarding his hypertension: Currently the patient's blood pressure is within normal limits. Home medication will be addressed once the list is ready. 7. Regarding his hyperlipidemia troponins: Will be addressed once the medication list is ready. 8. Regarding his chronic obstructive pulmonary disease: Not on home oxygen. Currently, saturation is normal. We will titrate if necessary to keep the saturation more than 90%. 9. CODE STATUS: He is a DO NOT RESUSCITATE/DO NOT INTUBATE. 10. Deep vein thrombosis prophylaxis: In the setting of hematuria, I will just use the compression devices for now. I will also keep him n.p.o. in case Urology will need to do some procedure. Total time spent in care on the day of admission is 40 minutes in which half of the total time spent was in chart review and interviewing and examining the patient. The other half of the total time was spent in counseling, including addressing all the questions and concerns the patient had and then going over the plan of care with the patient. I have answered every single question of the patient to his satisfaction. Further plan will depend on clinical course. ANNETTE HUMPHREY MD PATIENT'S NAME: RADHA COPELAND [facility] AGE: 81 Y [address] ROOM: [place] [address] [place] [facility] [place]: 11/03/2016 History & Physical DISCHARGE DATE: FAMILY PHYSICIAN: Physician, Unknown ATTENDING PHYSICIAN: Annette Humphrey/yolanda /[id number] D: [id number] T: [id number] HISTORY & PHYSICAL
--- NOTE | ~2016-11-03 | DS ---
PATIENT'S NAME: RADHA COPELAND [facility] AGE: 81 Y [address] ROOM: [place] [address] LOCATION: [facility] [place]MIT DATE: 11/03/2016 Discharge Summary DISCHARGE DATE: 11/06/2016 FAMILY PHYSICIAN: Physician, Unknown ATTENDING PHYSICIAN: Bartolome Gallo PRIMARY DIAGNOSES: 1. Gross hematuria secondary to Cabrera trauma. 2. Chronic low back pain with lower extremity weakness bilaterally. 3. Paroxysmal atrial fibrillation. 4. Chronic obstructive pulmonary disease. 5. Coronary artery disease status post coronary artery bypass grafting. 6. Essential hypertension. 7. Urinary tract infection with Enterococcus faecalis. OPERATIONS OR PROCEDURES: None. HISTORY OF PRESENTING ILLNESS/REASON FOR ADMISSION: Please refer to the H and P dictated by Dr. Gallo on 11/03/2016. HOSPITAL COURSE: The patient was admitted to hospital as noted above. Following the development of dysuria and hematuria. Urology was consulted and a Cabrera catheter had been inserted with some difficulty. Ultimately it was recommended for no catheterization and for the patient to remain on Flomax 0.4 mg daily. He remained hemodynamically stable over the course of his hospital stay. By the end of the 3rd day, it was felt he would be stable enough for discharge back to the assisted-living facility with plans for close clinical followup with primary care provider, Dr. Morris Cardenas as well as outpatient followup with Dr. Tamayo. DISCHARGE INSTRUCTIONS: DIET: Regular as tolerated. ACTIVITY: As tolerated. MEDICATIONS: 1. Aspirin 81 mg p.o. daily. 2. Vitamin D3 800 units p.o. daily. 3. TriCor 145 one tablet p.o. daily. 4. Lasix 40 mg p.o. daily five days of the week. 5. Amitiza 8 mcg p.o. daily. 6. Ritalin 10 mg p.o. b.i.d. PAT[facility] AGE: 81 Y [address] ROOM: [place] [address] LOC[place]: [facility] [place]MIT DATE: 11/03/2016 Discharge Summary DISCHARGE DATE: 11/06/2016 FAMILY PHYSICIAN: Physician, Unknown ATTENDING PHYSICIAN: Bartolome Gallo 7. Omeprazole 20 mg p.o. daily. 8. Nystatin cream applied topically b.i.d. x7 more days. 9. Exelon 6 mg p.o. b.i.d. 10. Rosuvastatin 40 mg p.o. at bedtime. 11. Sertraline 100 mg p.o. daily. 12. Flomax 0.4 mg p.o. at bedtime. 13. Advair 250/50 one puff p.o. b.i.d. 14. Spiriva 1 puff daily. 15. Voltaren gel 1% apply topically b.i.d. 16. Acetaminophen 650 mg p.o. q.4 hours p.r.n. 17. Ceramides apply topically at bedtime. 18. Milk of magnesia 30 mL p.o. q.24 hours p.r.n. constipation. 19. Dulcolax 10 mg daily p.r.n. constipation. 20. Percocet 5/325 one tab p.o. q.4 hours p.r.n. pain. 21. Doxycycline 100 mg p.o. b.i.d. x5 days. FOLLOWUP: He will follow up with Dr. Cardenas in [address] Tamayo in 2 weeks. CONDITION ON DISCHARGE: Fair. Total time spent on discharge process 45 minutes. MD IRINA HANNAH/yolanda /[id number] d: 11/22/16 0428 t: 12/02/16 2359, DISCHARGE SUMMARY
--- NOTE | ~2016-11-03 | CON ---
PATIENT'S NAME: RADHA COPELAND [facility] AGE: 81 Y [address] ROOM: [address] [address] [place] [facility] [place] DATE: 11/03/2016 Consultation DISCHARGE DATE: FAMILY PHYSICIAN: Physician, Unknown ATTENDING PHYSICIAN: Bartolome Gallo DATE OF CONSULTATION: 11/05/2016 REFERRING PHYSICIAN: Thomas Ramírez MD CHIEF COMPLAINT: Blood in urine. HISTORY OF PRESENT ILLNESS: The patient is an 81-year-old male, who resides in a prison. He was recently hospitalized in 10/16 through 10/30 and treated for some cellulitis. During that hospitalization, he had also had some troubles with traumatic Cabrera catheter placement with some resultant hematuria from the trauma. Dr. Servin had performed cystoscopy on 10/23/2016 and placement of a Cabrera catheter. Apparently his cystoscopy was with no concerning findings including no bladder tumors. He did have some areas of bleeding along his prostatic urethra, which were fulgurated. The patient does have a history of renal cell carcinoma in his right kidney in 1999 for which he underwent right nephrectomy. He also was diagnosed with prostate cancer in 1999 and was treated with radiation therapy and seed placement. Apparently, he has not had any evidence of kidney cancer recurrence or prostate cancer recurrence. Also, apparently all of his PSAs have been undetectable. He was brought in from his prison to the emergency room with complaints of difficulty with voiding. His residual in the emergency room was only a 150 mL, and so I had instructed the emergency room to hold off on Cabrera catheter placement. His hematocrit was 31.1, which appears to be his baseline from his recent hospitalization. His serum creatinine level was 1.2 upon admission and has trended down to 1.0 now today. He had a urinalysis, which was negative for nitrite and only 25 leukocytes and just a few bacteria. The patient, otherwise, has no further questions or concerns at this time. PAST MEDICAL HISTORY: 1. History of renal cell carcinoma. 2. History of prostate cancer. 3. History of urinary tract infection. 4. Coronary artery disease. 5. Hypertension. 6. Atrial fibrillation. 7. Hyperlipidemia. 8. GERD. 9. COPD. PATIENT'S NAME: RADHA COPELAND [facility] AGE: 81 Y [address] ROOM: [id number] [place], [place] [address] [place]: [facility] [place] DATE: 11/03/2016 Consultation DISCHARGE DATE: FAMILY PHYSICIAN: Physician, Unknown ATTENDING PHYSICIAN: Bartolome Gallo 10. Depression. PAST SURGICAL HISTORY: 1. Coronary artery bypass graft in 1991. 2. Right nephrectomy in 1999. 3. Colonoscopy in 09/2015. 4. Cystoscopy with fulguration and catheter placement on 10/23/2016. 5. Brachytherapy for prostate cancer. FAMILY HISTORY: No reported family history of genitourinary abnormalities or malignancy. SOCIAL HISTORY: The patient is a former smoker and quit several years ago. He also does drink alcohol in the past, but not a current drinker. ALLERGIES: TO MORPHINE. MEDICATIONS: See hospitalization medication reconciliation. REVIEW OF SYSTEMS: A full 10+ point review of systems was performed with pertinent positive and negative findings included in history of present illness. All other systems reviewed and are otherwise negative. PHYSICAL EXAMINATION: VITAL SIGNS: Temperature is 98 Fahrenheit, pulse 76, blood pressure 126/81, respiratory rate 16, oxygen saturation 97% on room air. CONSTITUTIONAL: No acute distress. Hemodynamically, stable. HEENT: Extraocular muscles intact. Mucous membranes moist. No drainage per ears and nose. CARDIAC: Good peripheral perfusion. RESPIRATORY: No audible wheezing or stridor. ABDOMEN: Benign. MUSCULOSKELETAL: Moves all extremities. HEMATOLOGIC: No active sites of bruising or bleeding. PSYCHIATRIC: Normal affect. IMPRESSION: 1. Gross hematuria. 2. History of prostate cancer, status post radiation therapy. 3. History of renal cell carcinoma, status post right nephrectomy. PATIENT'S NAME: RADHA COPELAND [facility] AGE: 81 Y [address] ROOM: [address] [address] [place]: [facility] [place] DATE: 11/03/2016 Consultation DISCHARGE DATE: FAMILY PHYSICIAN: Physician, Unknown ATTENDING PHYSICIAN: Bartolome Gallo PLAN: At this point, the patient does not appear to be having any significant difficulties with urinary retention with minimal/acceptable postvoid residuals on bladder scan. Given his recent history of traumatic catheter placement, I would really like to hold off and avoid any catheterization of this patient. The patient can remain on tamsulosin 0.4 mg daily. Please do not hesitate to call me with any questions or concerns regarding this patient or his primary urologist who is Dr. Cricket Servin with any further questions. MD ALFREDO RIVER/yolanda /[id number] d: 11/05/16 1010 t: 11/06/16 0835, CONSULTATION REPORT
[~2016-11-03 20:34] MED LIST changes: -ANUSOL-HC CREAM30 GM R; -CERAVE TOP; -CHLORASEPTIC SP1 BOT PO; -DOXYCYCLINE100 MG PO; -DURAGESIC 100100 MCG TRANS; -ENDOCET 10-3251 EACH PO; -KEFLEX500 MG PO; -MUCINEX600 MG PO; -MYCOLOG CREAM 330 GM TOP; -PERCOCET 5-3251 EACH PO; -PERIDEX15 ML PO; -PRAMOSONE TOP; -PRESERVISION A1 EACH PO; -REMERON15 MG PO; -SEROQUEL25 MG PO; -THERAGRAN-M1 TAB PO; -TOPROL XL25 MG PO; -ULTRAM50 MG PO
[2016-11-03 21:14] LABS: BASOPHIL # 0.1 K/uL (0.0-0.2); BASOPHIL % 0.8 %; EOSINOPHIL # 0.2 K/uL (0.0-0.5); EOSINOPHIL % 2.7 %; HEMATOCRIT 31.1 % (33.0-50.0); HEMOGLOBIN 10.9 g/dL (11.0-16.0); IMMATURE GRANULOCYTE % 0.5 %; LYMPHOCYTE # 2.4 K/uL (0.8-4.0); LYMPHOCYTE % 29.4 %; MCH 31.8 pg (27.0-34.0); MCV 90.7 fl (83.0-98.0); MONOCYTE # 0.8 K/uL (0.0-1.0); MONOCYTE % 10.1 %; MPV 10.2 fl (9.4-12.4); NEUTROPHIL # (ANC) 4.7 K/uL (1.4-9.0); NEUTROPHIL % 56.5 %; NRBC % 0 /100WBC (0-0.00); RBC 3.43 M/uL (3.50-5.50); RDW-CV 14.5 % (11.9-14.6); WBC 8.3 K/uL (4.0-11.0)
[2016-11-03 21:15] LABS: PLATELET COUNT 442 K/uL (150-450)
[2016-11-03 21:29] LABS: ALBUMIN 2.6 gm/dL (3.5-5.0); CALCIUM 8.4 mg/dL (8.5-10.5); CREATININE 1.2 mg/dL (0.6-1.3); TOTAL PROTEIN 5.8 g/dL (6.0-8.4)
[2016-11-03 21:30] LABS: ANION GAP 15.3 (10.0-19.0); POTASSIUM 4.3 mMol/L (3.7-5.1); TOTAL BILIRUBIN 0.3 mg/dL (0.0-1.5)
[2016-11-04 04:10] LABS: HEMATOCRIT 28.5 % (33.0-50.0); HEMOGLOBIN 9.7 g/dL (11.0-16.0)
--- NOTE | 2016-11-04 05:13 | NUR ---
Significant Event: Admitted to the floor at 2310 from ER. Patient is an 81 year old male who was recently discharged (on 10/30/16) from PCU. Patient had been admitted for cellulitis of the lower legs and UTI. On the a malplaced gibson catheter caused a prostatic hemorrhage and the patient underwent a cyctoscopy and cauterization of the hemorrhage with Dr. Servin. Over the past 2 days patient has experienced intermitted suprapubic pain and painful, buring urination. Today it was noticed that patients urine was grossly bloody and patient was transferred from [facility] to the ER for evaluation. Since arrival to the floor patient has been afebrile, all other VSS. Patient has been incontinent of urine x2 which has been bloody. Patient is NPO. There in a consult for urology in AM. Upon admission patients perianal area, penis and scrotum were noted to be reddened and excoriated. Aloe vesta initially applied and Nystatin cream applied per MD order. Patient has been repositioned q 2 hours. PIV to left anterior forearm patent and infusing without complications. Patient oriented to person and date, disoriented to place but reorients easily. Follow up: Need urine for UA and culture.
[2016-11-04 08:47] LABS: BASOPHIL # 0.1 K/uL (0.0-0.2); BASOPHIL % 0.9 %; EOSINOPHIL # 0.3 K/uL (0.0-0.5); EOSINOPHIL % 4.4 %; HEMATOCRIT 28.6 % (33.0-50.0); HEMOGLOBIN 9.9 g/dL (11.0-16.0); IMMATURE GRANULOCYTE % 0.5 %; LYMPHOCYTE # 1.6 K/uL (0.8-4.0); LYMPHOCYTE % 27.8 %; MCH 31.6 pg (27.0-34.0); MCHC 34.6 gm/dL (32.0-36.5); MCV 91.4 fl (83.0-98.0); MONOCYTE # 0.5 K/uL (0.0-1.0); MONOCYTE % 7.8 %; MPV 10.1 fl (9.4-12.4); NEUTROPHIL # (ANC) 3.4 K/uL (1.4-9.0); NEUTROPHIL % 58.6 %; NRBC % 0 /100WBC (0-0.00); PLATELET COUNT 402 K/uL (150-450); RBC 3.13 M/uL (3.50-5.50); RDW-CV 14.6 % (11.9-14.6); WBC 5.9 K/uL (4.0-11.0)
[2016-11-04 08:55] LABS: PROTIME 11.6 SECONDS (9.8-11.4); PTT 26 SECONDS (25-32)
[2016-11-04 08:58] LABS: ANION GAP 12.1 (10.0-19.0); BLOOD UREA NITROGEN 23 mg/dL (6-24); CALCIUM 7.9 mg/dL (8.5-10.5); CHLORIDE 111 mMol/L (96-110); CO2 23 mMol/L (22-32); CREATININE 1.1 mg/dL (0.6-1.3); ESTIMATED GFR (MDRD EQUATION) > 60; POTASSIUM 4.1 mMol/L (3.7-5.1); SODIUM 142 mMol/L (135-145)
[2016-11-04] MEDS ORDERED: PERCOCET 5-3251 EACH PO (12:26)
[2016-11-04 18:48] LABS: BILIRUBIN URINE NEGATIVE (NEGATIVE); BLOOD URINE 250 /UL (NEGATIVE); COLOR URINE RED (YELLOW); GLUCOSE URINE NEGATIVE (NEGATIVE); KETONE URINE NEGATIVE (NEGATIVE); LEUKOCYTES URINE 25 /UL (NEGATIVE); NITRITE URINE NEGATIVE (NEGATIVE); PROTEIN URINE 100 mg/dL (NEGATIVE); TURBIDITY URINE 4+ (CLEAR); UROBILINOGEN URINE NORMAL (NORMAL)
[2016-11-04 18:58] LABS: BACTERIA URINE FEW (NEGATIVE); EPITHELIAL URINE 0-2 #/HPF (NEGATIVE); RBC URINE PACKED FIELD #/HPF (NEGATIVE)
--- NOTE | 2016-11-04 20:23 | NUR ---
Significant Event: PT HAS HEMATURIA WITH CLOTS IN URINE. HE HAS BEEN INCONTINENT OF URINE. TRIED 4 TIMES TO GET UA, FINALLY OBTAINED THIS PM. PT C/O BURNING AND HAVING FEELING OF NEEDING TO URINATE BUT CAN'T AT TIMES. PT WAS BLADDER SCANNED FOR 221ML IN BLADDER AT 1130AM AND AT 1630 BLADDER SCAN SHOWED 87ML. HE COMPLAINED OF PAIN OF A "8", BURNING AND NEED TO URINATE. HE WAS GIVEN PERCOCET AT 1815. SHORTLY AFTER HE WAS ABLE TO URINATE 100ML OF BLOODY URINE WITH CLOTS IN IT. PT VERBALIZED RELIEF. PT WAS NPO TODAY THEN CHANGED TO REG DIET AT 1750. PT'S PERIAREA, GROIN TO COCCYX IS REDDENED. NYSTATIN APPLIED PER DR. SHELTON AND MOISTURE BARRIER APPLIED SEVERAL TIMES WELL. PT IS HARD OF HEARING, DAUGHTER BROUGHT IN HIS HEARING AIDS TODAY. IV IN LEFT ARM INFUSING WITHOUT DIFFICULTY. PT ATE 6 HARD BOILED EGGS AND 2 GLASSES OF HOT CHOCOLATE FOR SUPPER. Follow up:
--- NOTE | 2016-11-05 04:58 | NUR ---
Significant Event: Patient is alert and oriented x 3. Forgetful. VSS on room air. Was told patient is up with 1 assist, walker, and gaitbelt although patient did not get out of bed this shift. Incontinent of urine. Hematuria with clots noted. Bladder scanned at 0430, 236 mls in bladder. Left forearm IV with D5 1/2 NS with 20 meq of KCL running at 50ml/hr. Percocet given for pain last at 0252 and morphine last at 0305. Patient is pleasant and cooperative with cares. Follow up:
[2016-11-05 06:15] LABS: BASOPHIL # 0.1 K/uL (0.0-0.2); EOSINOPHIL # 0.3 K/uL (0.0-0.5); EOSINOPHIL % 3.8 %; HEMATOCRIT 28.3 % (33.0-50.0); HEMOGLOBIN 9.7 g/dL (11.0-16.0); IMMATURE GRANULOCYTE % 0.4 %; LYMPHOCYTE # 2.2 K/uL (0.8-4.0); LYMPHOCYTE % 32.5 %; MCH 31.7 pg (27.0-34.0); MCHC 34.3 gm/dL (32.0-36.5); MCV 92.5 fl (83.0-98.0); MONOCYTE # 0.6 K/uL (0.0-1.0); MONOCYTE % 8.6 %; MPV 10.1 fl (9.4-12.4); NEUTROPHIL # (ANC) 3.6 K/uL (1.4-9.0); NEUTROPHIL % 53.7 %; NRBC % 0 /100WBC (0-0.00); PLATELET COUNT 416 K/uL (150-450); RBC 3.06 M/uL (3.50-5.50); RDW-CV 14.8 % (11.9-14.6); WBC 6.8 K/uL (4.0-11.0)
[2016-11-05 06:30] LABS: ALBUMIN 2.2 gm/dL (3.5-5.0); ANION GAP 12.2 (10.0-19.0); BLOOD UREA NITROGEN 24 mg/dL (6-24); CALCIUM 8.2 mg/dL (8.5-10.5); CHLORIDE 112 mMol/L (96-110); CO2 22 mMol/L (22-32); ESTIMATED GFR (MDRD EQUATION) > 60; PHOSPHORUS 3.1 mg/dL (2.5-4.9); POTASSIUM 4.2 mMol/L (3.7-5.1); SODIUM 142 mMol/L (135-145)
--- NOTE | 2016-11-05 16:38 | NUR ---
Significant Event: Pt is a/o. Cooperative with cares. Forgetful @ times. Incont urine, urine is pink tinged with a few clots. Pt states he has very short time to know he needs to urinate, so is incont. Poss discharge tomorrow. Reports he feels like he is emptying bladder. IV L) FA. Periarea/scrotum is reddened. Aloe applied. Follow up:
--- NOTE | 2016-11-05 17:39 | NUR ---
THIS MORNING I RECEIVED CALL FORM PATIENT 'S DAUGHTER MAC MACDONALD HAS DECIDED THAT SHE WOULD LIKE FOR HER DAD TO GO TO [facility] AND SHE IS PLANNING ON MOVING HER MOTHER THERE WELL. I NOTIFIED JUAN AT [facility]. SHE INFORMS ME THAT THEY ARE FULL AT THIS TIME AND THAT RADHA IS ON THE WAITING LIST AND THAT SHE TOLD MYNOR SEVERAL TIMES THAT THEY ARE FULL AND ONCE THEY HAVE A MALE BED THEY WOULD CONTACT VERA AT [facility].I SPOKE TO MYNOR AND UPDATED HER OF THIS. THAN SHE CALLED ME AGAIN AND HAS DECIDED THAT SHE WANTS HER DAD TO GO BACK TO [place]. I EXPLAINED TO HER THAT I HAD CONCERNS TO WHETHER OR NOT THEY WOULD BE ABLE TO MEET RADHA'S NEEDS. SHE REPORTS THAT REBECCA WILL BE HERE TOMORROW TO EVALUATE RADHA. [facility] AND SPOKE VANESSA TONEY SHE REPORTS THAT JOSEY IS NOT THERE TODAY BUT SHE WILL BE BACK TOMORROW AND SUGGESTS THAT I CONTACT JOSEY AFTER 0900 TOMORROW.
--- NOTE | 2016-11-05 18:49 | NUR ---
D: REVIEWED DOCUMENTAITON AND CARE PROVIDED BY DAGMAR GRANDA. I AGREE WITH DOCUMENTATION AND CARE.
--- NOTE | 2016-11-06 05:25 | NUR ---
Significant Event: Patient is alert and oriented x 3. Forgetful. VSS on room air. Up with 1 assist, walker, and gaitbelt. Reposition q2 hours. Incontinent of urine. Voiding clear, yellow urine. Left forearm IV with D5 1/2 NS with 20 meq of KCL running at 50 ml/hr. Percocet given for pain last at 2117. Patient is pleasant and cooperative with cares. Follow up: Possible dismissal today.
--- NOTE | 2016-11-06 09:30 | NUR ---
RECEIVED CALL FROM REBECCA AT [facility] SHE INFORMS ME THAT SHE WILL BE HERE BETWEEN [phone]. TO EVALUATE PATIENT.
--- NOTE | 2016-11-06 12:30 | NUR ---
REBECCA HERE FROM [facility] AND EVALUATED RADHA. SHE MEET WITH ME AND INFORMS ME THAT THEY CAN ACCEPT RADHA TODAY. WE NOTIFIED PATIENT'S DAUGHTER MYNOR AND REBECCA SPOKE TO HER UPDATED HER THAT THEY WILL ACCEPT RADHA BACK TODAY, AND THEY WOULD LIKE FOR HIM TO HAVE HHC. MYNOR IS IN AGREEMENT TO THIS. SHE TELLS REBECCA THAT SHE WILL CONTACT MT. ALICIA AND INFORM EVRA THAT RADHA WILL NOT BE GOING BACK AND THAT SHE WILL BE HERE BETWEEN [phone] TO GET RADHA TO TAKE HIM BACK TO [facility]. REBECCA ASKED HER WHO SHE WANTED FOR HHC AND SHE INFORMS US THAT SHE WOULD LIKE FOR RADHA TO CONTINUE WITH HH THROUGH [facility]. HE HAS HAD THEM IN THE PAST. I NOTIFIED SHERRI WITH [facility] AND THEY WILL PLAN ON SEEING PATIENT. FAXED INFO AND DISCHARGE ORDERS TO HER. PACKET STARTED FOR [facility]. AND FAXED ORDERS TO REBECCA AT [facility]. DR. HOWELL IS AWARE OF THE DISCHARGE PLANS AND HE IS IN AGREEMENT TO THIS.
[2016-11-06] MEDS ORDERED: MYCOLOG CREAM 330 GM TOP (14:14)
[2016-11-06] MEDS ORDERED: REMERON15 MG PO (14:22)
[2016-11-06] MEDS ORDERED: MUCINEX600 MG PO (14:22)
[2016-11-06] MEDS ORDERED: THERAGRAN-M1 TAB PO (14:22)
[2016-11-06] MEDS ORDERED: ENDOCET 10-3251 EACH PO (14:22)
[2016-11-06] MEDS ORDERED: CERAVE TOP (14:22)
[2016-11-06] MEDS ORDERED: PRESERVISION A1 EACH PO (14:22)
[2016-11-06] MEDS ORDERED: TOPROL XL25 MG PO (14:22)
[2016-11-06] MEDS ORDERED: LOMOTIL1 TAB PO (14:22)
[2016-11-06] MEDS ORDERED: DURAGESIC 100100 MCG TRANS (14:22)
[2016-11-06] MEDS ORDERED: CHLORASEPTIC SP1 BOT PO (14:22)
[2016-11-06] MEDS ORDERED: PRAMOSONE TOP (14:22)
[2016-11-06] MEDS ORDERED: DOXYCYCLINE100 MG PO (14:25)
[2016-11-06] MEDS ORDERED: PERCOCET 5-3251 EACH PO (14:26)
--- NOTE | 2016-11-06 14:35 | NUR ---
D: ORDERS RECEIVED FOR THE PATIENT TO BE DISCHARGED TO [facility] TODAY. I: DISMISSAL INSTRUCTIONS WERE PREPARED AND REVIEWED WITH THE PATIENT, HE STATED HE DOESN'T ADMINISTER HIS OWNS MEDICATIONS SO HE DIDN'T WANT TO REIVEW ALL OF THEM BUT ALL NEW INFORMATION WAS STILL MADE AVAILABLE FOR HIM. THE FOLLOWING INFORMATION WAS DISCUSSED INCLUDING KRAMES TEACHING SHEETS PROVIDED: WHAT IS HEMATURIA, HEMATURIA-POSSIBLE CAUSES, NYSTATIN TOPICAL CREAM, DOXYCYCLINE, PERCOCET AND PREVENTING DVT. REVIEWED FOLLOW UP APPOINTMENT. R: THE PATIENT VERBALIZED UNDERSTANDING OF THE THINGS WE DID REVIEW AT THE TIME OF EDUCATION WAS PROVIDED WITH NO QUESTIONS. P: THE ABOVE INFORMATION WAS SHARED WITH THE PRIMARY NURSE AND THE CHARGE NURSE THAT THE DISMISSAL EDUCATION WAS COMPLETED PER PATIENT REQUESTED. THE PATIENT IS READY FOR DISCHARGE TO THE FRONT DOOR VIA WHEEL CHAIR BY NURSING STAFF WHEN ASL IN AVAILABLE.
--- NOTE | 2016-11-06 14:50 | NUR ---
VSS. ON RA. TRANSFER WITH WALKER/GAIT BELT (PER PROTOCOL) AND MINIMAL ASSIST. INCONTINENT OF URINE, WEARS BRIEFS. ORIENT X3, VERY PLEASANT.
[2017-01-08] MEDS ORDERED: ULTRAM50 MG PO (10:22)
[2017-01-08] MEDS ORDERED: SEROQUEL25 MG PO (10:22)
[2017-01-08] MEDS ORDERED: ANUSOL-HC CREAM30 GM R (10:22)
[2017-01-08] MEDS ORDERED: PERIDEX15 ML PO (10:23)
[2017-01-08] MEDS ORDERED: KEFLEX500 MG PO (10:32)
== END 2016-11-06 15:35 | disposition other institution (70) | DRG 699 ==
LOC: GMED 20:34 → GMSU 22:11
PROVIDERS: Family Medicine; Urology; ADMIT Internal Medicine
DX: T83.83XA Hemorrhage due to genitourinary prosthetic devices, implants and grafts, initial encounter (principal); D62 Acute posthemorrhagic anemia; J96.11 Chronic respiratory failure with hypoxia; I48.0 Paroxysmal atrial fibrillation; B37.2 Candidiasis of skin and nail; F03.90 Unspecified dementia, unspecified severity, without behavioral disturbance, psychotic disturbance, mood disturbance, and anxiety; R31.0 Gross hematuria; C61 Malignant neoplasm of prostate; I10 Essential (primary) hypertension; E78.5 Hyperlipidemia, unspecified; F32.9 Major depressive disorder, single episode, unspecified; I25.2 Old myocardial infarction; Z66 Do not resuscitate; Z90.5 Acquired absence of kidney; Z92.3 Personal history of irradiation; Z95.1 Presence of aortocoronary bypass graft; Z87.440 Personal history of urinary (tract) infections; R39.198 Other difficulties with micturition; H91.90 Unspecified hearing loss, unspecified ear
CPT/HCPCS: J2270; J3480

== ENCOUNTER → 2016-11-03 | Outpatient (CLI) | payer MEDICARE, OTHER ==
[~2016-11-03] MED LIST changes: +ANUSOL-HC CREAM30 GM R; +CERAVE TOP; +CHLORASEPTIC SP1 BOT PO; +DOXYCYCLINE100 MG PO; +DULCOLAX10 MG R; +DURAGESIC 100100 MCG TRANS; +ENDOCET 10-3251 EACH PO; +KEFLEX500 MG PO; +MUCINEX600 MG PO; +MYCOLOG CREAM 330 GM TOP; +PERCOCET 5-3251 EACH PO; +PERIDEX15 ML PO; +PRAMOSONE TOP; +PRESERVISION A1 EACH PO; +REMERON15 MG PO; +RITALIN 10MG10 MG PO; +SEROQUEL25 MG PO; +THERAGRAN-M1 TAB PO; +TOPROL XL25 MG PO; +ULTRAM50 MG PO
== END | disposition disaster alternative care site (69) ==
LOC: GAMB 20:15
DX: R30.9 Painful micturition, unspecified (principal); I70.90 Unspecified atherosclerosis; I12.9 Hypertensive chronic kidney disease with stage 1 through stage 4 chronic kidney disease, or unspecified chronic kidney disease; N18.3 Chronic kidney disease, stage 3 (moderate); E78.5 Hyperlipidemia, unspecified; K21.9 Gastro-esophageal reflux disease without esophagitis; I48.2 Chronic atrial fibrillation; I50.9 Heart failure, unspecified; M19.90 Unspecified osteoarthritis, unspecified site; Z79.82 Long term (current) use of aspirin; Z79.01 Long term (current) use of anticoagulants; Z79.899 Other long term (current) drug therapy; Z88.5 Allergy status to narcotic agent; R31.9 Hematuria, unspecified
CPT/HCPCS: A0425; A0429

== ENCOUNTER → 2016-12-01 | Outpatient (CLI) | payer MEDICARE, OTHER ==
[~2016-12-01] MED LIST changes: +ANUSOL-HC CREAM30 GM R; +CERAVE TOP; +CHLORASEPTIC SP1 BOT PO; +DOXYCYCLINE100 MG PO; +DURAGESIC 100100 MCG TRANS; +ENDOCET 10-3251 EACH PO; +KEFLEX500 MG PO; +MUCINEX600 MG PO; +MYCOLOG CREAM 330 GM TOP; +PERCOCET 5-3251 EACH PO; +PERIDEX15 ML PO; +PRAMOSONE TOP; +PRESERVISION A1 EACH PO; +REMERON15 MG PO; +SEROQUEL25 MG PO; +THERAGRAN-M1 TAB PO; +TOPROL XL25 MG PO; +ULTRAM50 MG PO
== END | disposition disaster alternative care site (69) ==
LOC: GAMB 01:56
DX: S49.92XA Unspecified injury of left shoulder and upper arm, initial encounter (principal); M25.512 Pain in left shoulder; F03.90 Unspecified dementia, unspecified severity, without behavioral disturbance, psychotic disturbance, mood disturbance, and anxiety; I70.90 Unspecified atherosclerosis; I12.9 Hypertensive chronic kidney disease with stage 1 through stage 4 chronic kidney disease, or unspecified chronic kidney disease; N18.3 Chronic kidney disease, stage 3 (moderate); E78.5 Hyperlipidemia, unspecified; K21.9 Gastro-esophageal reflux disease without esophagitis; I20.9 Angina pectoris, unspecified; M19.90 Unspecified osteoarthritis, unspecified site; I48.2 Chronic atrial fibrillation; I50.9 Heart failure, unspecified; Z79.82 Long term (current) use of aspirin; Z79.899 Other long term (current) drug therapy; Z88.5 Allergy status to narcotic agent; X58.XXXA Exposure to other specified factors, initial encounter
CPT/HCPCS: A0425; A0429